=== PATIENT | female | born 1955 | race American Indian/Alaskan Native ===

== ENCOUNTER 2018-04-04 10:38 | Inpatient (IN) | payer MEDICARE ==
[2018-04-04] MEDS ORDERED: NACL 0.9% 1000 ML 1,000 ML IV ONE (11:56)
--- NOTE | 2018-04-04 12:36 | Emergency Department Report ---
ED General Adult HPI - General Chief complaint: Urogenital-Female Stated complaint: RECTAL BLEEDING Time Seen by Provider: 04/04/18 11:56 Source: EMS Mode of arrival: Stretcher Limitations: Language Barrier, Altered Mental Status, Physical Limitation - History of Present Illness Initial comments: Ms. Mcgee is a 62 yo female who presents blooding from the rectum. She is a patient of [facility]. Ms. 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 She is legally blind. She has history of dementia schizophrenia heart failure aphasia depression diabetes and epilepsy. Currently she denies any pain or discomfort. History obtained from [facility] documentation which accompaned the patient. Aspirin and Plavix are on her medication list. - Related Data Allergies Allergy/AdvReac Type Severity Reaction Status Date / Time No Known Allergies Allergy Unverified 07/03/16 16:32 ED Review of Systems ROS: Stated complaint: RECTAL BLEEDING Other details as noted in HPI Comment: Unobtainable due to pts medical conditions ED Past Medical Hx - Past Medical History Previous Medical History?: Yes Hx Hypertension: Yes Hx CVA: Yes (Left sided deficit) Hx Diabetes: Yes Hx Dementia: Yes Additional medical history: Generalized ms weakness. anxiety disorder. Legal blindness. Schizophrenia. Epilepsy - Social History Smoking Status: Unknown if ever smoked ED Physical Exam - General Limitations: Language Barrier, Altered Mental Status, Physical Limitation General appearance: alert, in no apparent distress - Head Head exam: Present: atraumatic, normocephalic - Eye Eye exam: Present: normal appearance - ENT ENT exam: Present: mucous membranes moist - Neck Neck exam: Present: normal inspection - Respiratory Respiratory exam: Present: normal lung sounds bilaterally. Absent: respiratory distress, wheezes, rales, rhonchi - Cardiovascular Cardiovascular Exam: Present: regular rate, normal rhythm, normal heart sounds. Absent: systolic murmur, diastolic murmur, rubs, gallop - GI/Abdominal GI/Abdominal exam: Present: soft, normal bowel sounds. Absent: distended, tenderness, guarding - Rectal Rectal exam: Present: heme (+) stool, bloody stool, other (brick red bloody output from rectum) - Extremities Exam Extremities exam: Present: normal inspection - Back Exam Back exam: Present: normal inspection - Neurological Exam Neurological exam: Present: alert, other (oriented to name) - Psychiatric Psychiatric exam: Present: flat affect, other (calm) - Skin Skin exam: Present: warm, dry, intact, normal color. Absent: rash ED Course Vital Signs 04/04/18 04/04/18 04/04/18 11:40 11:46 12:00 Temperature 98.8 F Pulse Rate 82 88 85 Respiratory 12 18 Rate Blood Pressure 104/72 104/72 104/72 O2 Sat by Pulse 96 97 98 Oximetry 04/04/18 04/04/18 04/04/18 12:16 12:45 13:00 Temperature Pulse Rate 82 84 85 Respiratory 12 17 17 Rate Blood Pressure 105/79 105/79 102/57 O2 Sat by Pulse 98 99 96 Oximetry 04/04/18 13:15 Temperature Pulse Rate 85 Respiratory 13 Rate Blood Pressure 82/52 O2 Sat by Pulse 97 Oximetry ED Medical Decision Making - Lab Data Result diagrams: 04/04/18 12:11 04/04/18 12:11 Laboratory Results - last 24 hr 04/04/18 04/04/18 04/04/18 12:11 12:11 12:11 WBC 7.2 RBC 3.49 L Hgb 11.0 Hct 32.6 MCV 94 MCH 31 MCHC 34 RDW 15.1 Plt Count 221 Lymph % (Auto) 37.9 H [place] % (Auto) 6.6 Eos % (Auto) 0.8 Baso % (Auto) 0.4 Lymph # 2.7 [place] # 0.5 Eos # 0.1 Baso # 0.0 Seg Neutrophils % 54.3 Seg Neutrophils # 3.9 PT 13.6 INR 0.99 APTT 35.1 Sodium 144 Potassium 4.2 Chloride 104.1 Carbon Dioxide 26 Anion Gap 18 BUN 25 H Creatinine 0.5 L Estimated GFR > 60 BUN/Creatinine Ratio 50 Glucose 133 H Calcium 8.6 Total Bilirubin 0.20 AST 11 ALT 11 Alkaline Phosphatase 43 Total Protein 6.3 Albumin 3.7 L Albumin/Globulin Ratio 1.4 Lipase 39 Blood Type Antibody Screen 04/04/18 12:15 WBC RBC Hgb Hct MCV MCH MCHC RDW Plt Count Lymph % (Auto) [place] % (Auto) Eos % (Auto) Baso % (Auto) Lymph # [place] # Eos # Baso # Seg Neutrophils % Seg Neutrophils # PT INR APTT Sodium Potassium Chloride Carbon Dioxide Anion Gap BUN Creatinine Estimated GFR BUN/Creatinine Ratio Glucose Calcium Total Bilirubin AST ALT Alkaline Phosphatase Total Protein Albumin Albumin/Globulin Ratio Lipase Blood Type A POSITIVE Antibody Screen Negative Vital Signs - 24 hr 04/04/18 04/04/18 04/04/18 11:40 11:46 12:00 Temperature 98.8 F Pulse Rate 82 88 85 Respiratory 12 18 Rate Blood Pressure 104/72 104/72 104/72 O2 Sat by Pulse 96 97 98 Oximetry 04/04/18 04/04/18 04/04/18 12:16 12:45 13:00 Temperature Pulse Rate 82 84 85 Respiratory 12 17 17 Rate Blood Pressure 105/79 105/79 102/57 O2 Sat by Pulse 98 99 96 Oximetry 04/04/18 13:15 Temperature Pulse Rate 85 Respiratory 13 Rate Blood Pressure 82/52 O2 Sat by Pulse 97 Oximetry - Medical Decision Making Ms. Mcgee is a 62-year-old female presents with lower GI bleed. Differential diagnosis includes diverticular bleed versus AVM versus mass. She is taking anticoagulation with Plavix and antiplatelet therapy with aspirin. She did have transient hypotension which improved with IV fluid therapy. Admitted to hospitalist service. I consulted GI service of [facility] and Dr. Gil. Critical Care Time: Yes Critical care time in (mins) excluding proc time.: 40 Critical care attestation.: If time is entered above; I have spent that time in minutes in the direct care of this critically ill patient, excluding procedure time. 40 minutes of critical care time excluding procedures were used in the care of the patient. I was concerned for active hemorrhage and cardiovascular instability. I reviewed [facility] documentation. Patient required multiple reassessments and interventions. I spoke with several consultants including warehouseman and hospitalist. ED Disposition Clinical Impression: Lower GI bleed Disposition: OP ADMIT IP TO THIS HOSP Is pt being admited?: Yes Does the pt Need Aspirin: No Condition: Stable Time of Disposition: 15:17
[2018-04-04 12:48] LABS: Basophils % (Auto) 0.4 % (0.0-1.8); Eosinophils # (Auto) 0.1 K/mm3 (0.0-0.4); Eosinophils % (Auto) 0.8 % (0.0-4.3); Hematocrit 32.6 % (30.3-42.9); Lymphocytes # (Auto) 2.7 K/mm3 (1.2-5.4); Lymphocytes % (Auto) 37.9 % (13.4-35.0); Mean Corpuscular HGB Conc 34 % (30-34); Mean Corpuscular Hemoglobin 31 pg (28-32); Mean Corpuscular Volume 94 fl (79-97); Monocytes # (Auto) 0.5 K/mm3 (0.0-0.8); Monocytes % (Auto) 6.6 % (0.0-7.3); Platelet Count 221 K/mm3 (140-440); Red Blood Count 3.49 M/mm3 (3.65-5.03); Red Cell Distribution Width 15.1 % (13.2-15.2)
[2018-04-04 13:08] LABS: Alanine Aminotransferase 11 units/L (7-56); Albumin 3.7 g/dL (3.9-5); BUN/Creatinine Ratio 50; Blood Urea Nitrogen 25 mg/dL (7-17); Calcium 8.6 mg/dL (8.4-10.2); Hemolysis Index 8; Lipase 39 units/L (13-60)
[2018-04-04 13:12] LABS: INR 0.99 (0.87-1.13)
[2018-04-04 13:13] LABS: Partial Thromboplastin Time 35.1 Sec. (24.2-36.6)
--- NOTE | 2018-04-04 15:52 | Gastroenterology Consultation ---
History of Present Illness - Reason for Consult Consult date: 04/04/18 LGIB Requesting physician: FLORENTINO VENEGAS - History of Present Illness Patient is a 62 y/o female alf resident with PMH of CVA, legally blind , dementia, schizophrenia, heart failure, depression, DM, and epilepsy who was brought to ED for rectal bleeding to which GI has been consulted. This afternoon patient was resting in bed w/o acute distress. History obtained via chart review and from patient's sister (Anita Reed [phone]). Upon rectal exam, dark red/maroon stool was found. No hematemesis. Denies CP, SOB, dizziness , wt loss, abd pain, N/V, diarrhea, or constipation. No previous hx of GI bleeding. No previous colonoscopy. No Fhx of colon cancer. On ASA and Plavix. Past History Past Medical History: diabetes, heart failure, seizures, stroke, other (legally blind, dementia, schizophrenia, depression ) Past Surgical History: Other (unknown) Social history: other (alf resident) Medications and Allergies Allergies Allergy/AdvReac Type Severity Reaction Status Date / Time No Known Allergies Allergy Unverified 07/03/16 16:32 Home Medications Medication Instructions Recorded Confirmed Last Taken Type Aspirin 325 mg PO DAILY 04/04/18 04/04/18 Unknown History Atorvastatin Calcium 40 mg PO DAILY 04/04/18 04/04/18 Unknown History Carvedilol [Coreg] 12.5 mg PO BID 04/04/18 04/04/18 Unknown History Clopidogrel [Plavix] 75 mg PO QDAY 04/04/18 04/04/18 Unknown History LORazepam [Ativan] 1 mg PO TID 04/04/18 04/04/18 Unknown History Lisinopril [Zestril] 20 mg PO QDAY 04/04/18 04/04/18 Unknown History Loratadine [Claritin] 10 mg PO DAILY 04/04/18 04/04/18 Unknown History Mometasone Furoate [Nasonex] 2 spray NS QDAY 04/04/18 04/04/18 Unknown History OLANZapine [Zyprexa Zydis] 15 mg PO DAILY 04/04/18 04/04/18 Unknown History Polyethylene Glycol 3350 [Miralax 17 gm PO QDAY 04/04/18 04/04/18 Unknown History 3350] Active Meds: Active Medications Sodium Chloride (Nacl 0.9% 1000 Ml) 1,000 mls @ 250 mls/hr IV ONCE ONE Stop: 04/04/18 15:55 Last Admin: 04/04/18 12:30 Dose: 250 mls/hr Review of Systems - Review of Systems All systems: negative Gastrointestinal: other (rectal bleeding) Exam - Constitutional Vital Signs: Temp Pulse Resp BP Pulse Ox 98.8 F 85 13 82/52 97 04/04/18 11:40 04/04/18 13:15 04/04/18 13:15 04/04/18 13:15 04/04/18 13:15 General appearance: no acute distress, other (language barrier) - Respiratory Respiratory: bilateral: CTA (anterior) - Cardiovascular Rhythm: regular Heart Sounds: Present: S1 & S2 - Gastrointestinal General gastrointestinal: Present: soft, non-tender, non-distended, normal bowel sounds Rectal Exam: other (dark red/maroon stool) - Labs CBC & Chem 7: 04/04/18 12:11 04/04/18 12:11 Lab Results: Laboratory Results - last 24 hr 04/04/18 04/04/18 04/04/18 12:11 12:11 12:11 WBC 7.2 RBC 3.49 L Hgb 11.0 Hct 32.6 MCV 94 MCH 31 MCHC 34 RDW 15.1 Plt Count 221 Lymph % (Auto) 37.9 H [place] % (Auto) 6.6 Eos % (Auto) 0.8 Baso % (Auto) 0.4 Lymph # 2.7 [place] # 0.5 Eos # 0.1 Baso # 0.0 Seg Neutrophils % 54.3 Seg Neutrophils # 3.9 PT 13.6 INR 0.99 APTT 35.1 Sodium 144 Potassium 4.2 Chloride 104.1 Carbon Dioxide 26 Anion Gap 18 BUN 25 H Creatinine 0.5 L Estimated GFR > 60 BUN/Creatinine Ratio 50 Glucose 133 H Calcium 8.6 Total Bilirubin 0.20 AST 11 ALT 11 Alkaline Phosphatase 43 Total Protein 6.3 Albumin 3.7 L Albumin/Globulin Ratio 1.4 Lipase 39 Blood Type Antibody Screen 04/04/18 12:15 WBC RBC Hgb Hct MCV MCH MCHC RDW Plt Count Lymph % (Auto) [place] % (Auto) Eos % (Auto) Baso % (Auto) Lymph # [place] # Eos # Baso # Seg Neutrophils % Seg Neutrophils # PT INR APTT Sodium Potassium Chloride Carbon Dioxide Anion Gap BUN Creatinine Estimated GFR BUN/Creatinine Ratio Glucose Calcium Total Bilirubin AST ALT Alkaline Phosphatase Total Protein Albumin Albumin/Globulin Ratio Lipase Blood Type A POSITIVE Antibody Screen Negative Assessment and Plan 1.GI bleed 2.rectal bleeding -H/H WNL (11.0/32.6) -continue to monitor H/H and transfuse as needed -hold blood thinning medications -currently HD stable -rectal exam revealed dark red/maroon stool -etiology unclear- possible diverticular vs other -will order stat bleeding scan for further evaluation -start on PPI -continue supportive care -further recommendations to follow
[2018-04-04] MEDS ORDERED: PROTONIX IV SCH (17:00)
[2018-04-04] MEDS ORDERED: PROTONIX IV ONE (18:03)
--- NOTE | 2018-04-04 21:48 | History and Physical Report ---
History of Present Illness Date of examination: 04/04/18 Date of admission: 04/04/18 15:15 Chief complaint: Blood per rectum History of present illness: History of Present Illness: 62 y/o female longterm resident with PMH of CVA, legally blind, dementia, schizophrenia, heart failure, depression, DM, and epilepsy was brought to ED for rectal bleeding .This afternoon patient was resting in bed w/o acute distress.Appaarently had a bloody stool.Poor History Past History Past Medical History: diabetes, heart failure, seizures, stroke, other (legally blind, dementia, schizophrenia, depression ) Past Surgical History: Other (unknown) Social history: other (longterm resident) Review of Systems - Review of Systems All systems: negative Gastrointestinal: other (rectal bleeding) Past History Past Medical History: diabetes, heart failure, seizures, stroke, other (legally blind, dementia, schizophrenia, depression ) Past Surgical History: Other (unknown) Social history: other (longterm resident) Medications and Allergies Allergies Allergy/AdvReac Type Severity Reaction Status Date / Time No Known Allergies Allergy Unverified 07/03/16 16:32 Home Medications Medication Instructions Recorded Confirmed Last Taken Type Aspirin 325 mg PO DAILY 04/04/18 04/04/18 Unknown History Atorvastatin Calcium 40 mg PO DAILY 04/04/18 04/04/18 Unknown History Carvedilol [Coreg] 12.5 mg PO BID 04/04/18 04/04/18 Unknown History Clopidogrel [Plavix] 75 mg PO QDAY 04/04/18 04/04/18 Unknown History LORazepam [Ativan] 1 mg PO TID 04/04/18 04/04/18 Unknown History Lisinopril [Zestril] 20 mg PO QDAY 04/04/18 04/04/18 Unknown History Loratadine [Claritin] 10 mg PO DAILY 04/04/18 04/04/18 Unknown History Mometasone Furoate [Nasonex] 2 spray NS QDAY 04/04/18 04/04/18 Unknown History OLANZapine [Zyprexa Zydis] 15 mg PO DAILY 04/04/18 04/04/18 Unknown History Polyethylene Glycol 3350 [Miralax 17 gm PO QDAY 04/04/18 04/04/18 Unknown History 3350] Active Meds: Active Medications Pantoprazole Sodium (Protonix) 40 mg IV DAILY ANALIA Last Admin: 04/04/18 18:05 Dose: 40 mg Exam - Constitutional Vitals: Temp Pulse Resp BP Pulse Ox 99 F 82 17 110/65 99 04/04/18 17:55 04/04/18 17:45 04/04/18 17:45 04/04/18 17:45 04/04/18 17:45 General appearance: Present: no acute distress, well-nourished - EENT Eyes: Present: PERRL ENT: hearing intact, clear oral mucosa - Neck Neck: Present: supple, normal ROM - Respiratory Respiratory effort: normal Respiratory: bilateral: CTA - Cardiovascular Heart rate: 80 Rhythm: regular Heart Sounds: Present: S1 & S2. Absent: rub, click - Extremities Extremities: no ischemia, pulses intact, pulses symmetrical, No edema Peripheral Pulses: within normal limits - Abdominal General gastrointestinal: Present: soft, non-tender, non-distended, normal bowel sounds Female genitourinary: Present: normal - Integumentary Integumentary: Present: clear, warm, dry - Musculoskeletal Musculoskeletal: left sided weakness, generalized weakness - Psychiatric Psychiatric: appropriate mood/affect, intact judgment & insight - Neurologic Neurologic: CNII-XII intact, moves all extremities - Allied Health Allied health notes reviewed: nursing, case management Results - Labs CBC & Chem 7: 04/05/18 05:49 04/05/18 05:49 Labs: Laboratory Last Values WBC 7.2 K/mm3 (4.5-11.0) 04/04/18 12:11 RBC 3.49 M/mm3 (3.65-5.03) L 04/04/18 12:11 Hgb 11.0 gm/dl (10.1-14.3) 04/04/18 12:11 Hct 32.6 % (30.3-42.9) 04/04/18 12:11 MCV 94 fl (79-97) 04/04/18 12:11 MCH 31 pg (28-32) 04/04/18 12:11 MCHC 34 % (30-34) 04/04/18 12:11 RDW 15.1 % (13.2-15.2) 04/04/18 12:11 Plt Count 221 K/mm3 (140-440) 04/04/18 12:11 Lymph % (Auto) 37.9 % (13.4-35.0) H 04/04/18 12:11 [place] % (Auto) 6.6 % (0.0-7.3) 04/04/18 12:11 Eos % (Auto) 0.8 % (0.0-4.3) 04/04/18 12:11 Baso % (Auto) 0.4 % (0.0-1.8) 04/04/18 12:11 Lymph # 2.7 K/mm3 (1.2-5.4) 04/04/18 12:11 [place] # 0.5 K/mm3 (0.0-0.8) 04/04/18 12:11 Eos # 0.1 K/mm3 (0.0-0.4) 04/04/18 12:11 Baso # 0.0 K/mm3 (0.0-0.1) 04/04/18 12:11 Seg Neutrophils % 54.3 % (40.0-70.0) 04/04/18 12:11 Seg Neutrophils # 3.9 K/mm3 (1.8-7.7) 04/04/18 12:11 PT 13.6 Sec. (12.2-14.9) 04/04/18 12:11 INR 0.99 (0.87-1.13) 04/04/18 12:11 APTT 35.1 Sec. (24.2-36.6) 04/04/18 12:11 Sodium 144 mmol/L (137-145) 04/04/18 12:11 Potassium 4.2 mmol/L (3.6-5.0) 04/04/18 12:11 Chloride 104.1 mmol/L (98-107) 04/04/18 12:11 Carbon Dioxide 26 mmol/L (22-30) 04/04/18 12:11 Anion Gap 18 mmol/L 04/04/18 12:11 BUN 25 mg/dL (7-17) H 04/04/18 12:11 Creatinine 0.5 mg/dL (0.7-1.2) L 04/04/18 12:11 Estimated GFR > 60 ml/min 04/04/18 12:11 BUN/Creatinine Ratio 50 % 04/04/18 12:11 Glucose 133 mg/dL (65-100) H 04/04/18 12:11 Calcium 8.6 mg/dL (8.4-10.2) 04/04/18 12:11 Total Bilirubin 0.20 mg/dL (0.1-1.2) 04/04/18 12:11 AST 11 units/L (5-40) 04/04/18 12:11 ALT 11 units/L (7-56) 04/04/18 12:11 Alkaline Phosphatase 43 units/L (35-129) 04/04/18 12:11 Total Protein 6.3 g/dL (6.3-8.2) 04/04/18 12:11 Albumin 3.7 g/dL (3.9-5) L 04/04/18 12:11 Albumin/Globulin Ratio 1.4 % 04/04/18 12:11 Lipase 39 units/L (13-60) 04/04/18 12:11 Blood Type A POSITIVE 04/04/18 12:15 Antibody Screen Negative 04/04/18 12:15 Short CBC 04/04/18 04/04/18 04/05/18 Range/Units 12:11 22:41 05:49 WBC 7.2 5.1 (4.5-11.0) K/mm3 Hgb 11.0 8.8 L 8.7 L (10.1-14.3) gm/dl Hct 32.6 25.7 L D 25.3 L (30.3-42.9) % Plt Count 221 170 (140-440) K/mm3 BMP 04/04/18 04/05/18 12:11 05:49 Sodium 144 147 H Potassium 4.2 3.9 Chloride 104.1 109.8 H Carbon Dioxide 26 26 BUN 25 H 24 H Creatinine 0.5 L 0.5 L Glucose 133 H 103 H Calcium 8.6 8.2 L Liver Function 04/04/18 04/05/18 Range/Units 12:11 05:49 Total Bilirubin 0.20 0.20 (0.1-1.2) mg/dL AST 11 11 (5-40) units/L ALT 11 9 (7-56) units/L Alkaline Phosphatase 43 38 (35-129) units/L Albumin 3.7 L 3.2 L (3.9-5) g/dL - Imaging and Cardiology EKG: report reviewed Assessment and Plan Advance Directives: Yes (Full code) VTE prophylaxis?: Chemical, Mechanical Plan of care discussed with patient/family: Yes - Patient Problems (1) Lower GI bleed Current Visit: Yes Status: Acute Plan to address problem: Bleeding scan per GI GI consulted (2) HTN (hypertension) Current Visit: Yes Status: Chronic Qualifiers: Hypertension type: essential hypertension Qualified Code(s): I10 - Essential (primary) hypertension Plan to address problem: On catapress patch (3) HLD (hyperlipidemia) Current Visit: Yes Status: Chronic Qualifiers: Hyperlipidemia type: mixed hyperlipidemia Qualified Code(s): E78.2 - Mixed hyperlipidemia Plan to address problem: Will hold the statins (4) CVA, old, dysarthria Current Visit: Yes Status: Chronic Plan to address problem: With L side weakness WILL Hold Plavix (5) DVT prophylaxis Current Visit: Yes Status: Acute Plan to address problem: on SCD's
[2018-04-04] MEDS ORDERED: MORPHINE IV PRN (21:51)
[2018-04-04] MEDS ORDERED: TYLENOL PO PRN (21:51)
[2018-04-04] MEDS ORDERED: ZOFRAN IV PRN (21:51)
[2018-04-04] MEDS ORDERED: PHENERGAN PR PRN (21:51)
[2018-04-04] MEDS ORDERED: SODIUM CHLORIDE FLUSH SYRINGE 10 ML IV PRN (21:51)
[2018-04-04] MEDS ORDERED: D5NS 1,000 ML IV SCH (22:00)
[2018-04-04 23:09] LABS: Hematocrit 25.7 % (30.3-42.9); Hemoglobin 8.8 gm/dl (10.1-14.3)
[2018-04-05] MEDS: PROTONIX IV SCH ×3 (00:54→23:15)
[2018-04-05] MEDS: SODIUM CHLORIDE FLUSH SYRINGE 10 ML IV SCH ×3 (00:55→23:16)
[2018-04-05 06:47] LABS: Alanine Aminotransferase 9 units/L (7-56); Albumin 3.2 g/dL (3.9-5); BUN/Creatinine Ratio 48; Blood Urea Nitrogen 24 mg/dL (7-17); Calcium 8.2 mg/dL (8.4-10.2); Hemolysis Index 26
[2018-04-05 06:50] LABS: Basophils % (Auto) 0.2 % (0.0-1.8); Eosinophils % (Auto) 0.9 % (0.0-4.3); Hematocrit 25.3 % (30.3-42.9); Hemoglobin 8.7 gm/dl (10.1-14.3); Lymphocytes # (Auto) 2.8 K/mm3 (1.2-5.4); Mean Corpuscular HGB Conc 34 % (30-34); Mean Corpuscular Hemoglobin 32 pg (28-32); Mean Corpuscular Volume 93 fl (79-97); Monocytes # (Auto) 0.5 K/mm3 (0.0-0.8); Monocytes % (Auto) 8.8 % (0.0-7.3); Platelet Count 170 K/mm3 (140-440); Red Blood Count 2.72 M/mm3 (3.65-5.03); Red Cell Distribution Width 14.9 % (13.2-15.2)
[2018-04-05] MEDS ORDERED: FLUSH HEPARIN IV ONE ×2 (10:38→20:57)
--- NOTE | 2018-04-05 12:37 | Gastroenterology Progress Note ---
Addendum entered and electronically signed by ADRIENNE BRICEÑO NP 04/05/18 16: 23: bleeding scan negative. will schedule for colonoscopy in am. Original Note: Assessment and Plan 1.GI bleed 2.rectal bleeding -HGB 8.7- trended down from admission but stable -continue to monitor H/H and transfuse as needed -hold blood thinning medications - HD stable -BM x 1 this am with dark red/maroon stool per nursing -etiology unclear- possible diverticular vs other -bleeding scan pending for today -consider colonoscopy tomorrow based on results -continue PPI and supportive care -will follow Subjective Date of service: 04/05/18 Principal diagnosis: LGIB Interval history: Patient w/o acute distress. BM x 1 this am with dark red/maroon stool per nursing. Denies abd pain or N/V. Objective - Constitutional Vitals: Temp Pulse Resp BP Pulse Ox 97.6 F 74 18 110/73 100 04/05/18 08:00 04/05/18 08:00 04/05/18 08:00 04/05/18 08:00 04/05/18 08:00 General appearance: no acute distress - Respiratory Respiratory: bilateral: CTA - Cardiovascular Rhythm: regular Heart Sounds: Present: S1 & S2 - Gastrointestinal General gastrointestinal: Present: soft, non-tender, non-distended, normal bowel sounds - Labs CBC & Chem 7: 04/05/18 05:49 04/05/18 05:49 Labs: Laboratory Results - last 24 hr 04/04/18 04/04/18 04/04/18 12:11 12:11 12:11 WBC 7.2 RBC 3.49 L Hgb 11.0 Hct 32.6 MCV 94 MCH 31 MCHC 34 RDW 15.1 Plt Count 221 Lymph % (Auto) 37.9 H [place] % (Auto) 6.6 Eos % (Auto) 0.8 Baso % (Auto) 0.4 Lymph # 2.7 [place] # 0.5 Eos # 0.1 Baso # 0.0 Seg Neutrophils % 54.3 Seg Neutrophils # 3.9 PT 13.6 INR 0.99 APTT 35.1 Sodium 144 Potassium 4.2 Chloride 104.1 Carbon Dioxide 26 Anion Gap 18 BUN 25 H Creatinine 0.5 L Estimated GFR > 60 BUN/Creatinine Ratio 50 Glucose 133 H Hemoglobin A1c Calcium 8.6 Total Bilirubin 0.20 AST 11 ALT 11 Alkaline Phosphatase 43 Total Protein 6.3 Albumin 3.7 L Albumin/Globulin Ratio 1.4 Lipase 39 Blood Type Antibody Screen 04/04/18 04/04/18 04/04/18 12:15 22:41 22:41 WBC RBC Hgb 8.8 L Hct 25.7 L D MCV MCH MCHC RDW Plt Count Lymph % (Auto) [place] % (Auto) Eos % (Auto) Baso % (Auto) Lymph # [place] # Eos # Baso # Seg Neutrophils % Seg Neutrophils # PT INR APTT Sodium Potassium Chloride Carbon Dioxide Anion Gap BUN Creatinine Estimated GFR BUN/Creatinine Ratio Glucose Hemoglobin A1c 5.6 Calcium Total Bilirubin AST ALT Alkaline Phosphatase Total Protein Albumin Albumin/Globulin Ratio Lipase Blood Type A POSITIVE Antibody Screen Negative 04/05/18 04/05/18 05:49 05:49 WBC 5.1 RBC 2.72 L Hgb 8.7 L Hct 25.3 L MCV 93 MCH 32 MCHC 34 RDW 14.9 Plt Count 170 Lymph % (Auto) 55.0 H [place] % (Auto) 8.8 H Eos % (Auto) 0.9 Baso % (Auto) 0.2 Lymph # 2.8 [place] # 0.5 Eos # 0.0 Baso # 0.0 Seg Neutrophils % 35.1 L Seg Neutrophils # 1.8 PT INR APTT Sodium 147 H Potassium 3.9 Chloride 109.8 H Carbon Dioxide 26 Anion Gap 15 BUN 24 H Creatinine 0.5 L Estimated GFR > 60 BUN/Creatinine Ratio 48 Glucose 103 H Hemoglobin A1c Calcium 8.2 L Total Bilirubin 0.20 AST 11 ALT 9 Alkaline Phosphatase 38 Total Protein 5.3 L Albumin 3.2 L Albumin/Globulin Ratio 1.5 Lipase Blood Type Antibody Screen
--- NOTE | 2018-04-05 13:36 | Nuclear Medicine Report ---
BLEEDING SCAN: History: GI bleeding, rectal bleeding. Standard distribution of radiotracer is noted. No enteric activity to suggest gastrointestinal bleeding is noted. IMPRESSION: Normal bleeding scan. No evidence for active bleeding at the time of study.
--- NOTE | 2018-04-05 16:26 | Progress Note ---
Assessment and Plan Assessment and plan: Bloody stool. H/H stable GI consulted Colonoscopy tomorrow Diabetes mellitus type 2. Check fingerstick Qac and hs Chronic heart failure. Seizure disorder. Stable Dementia Schizophrenia Legally blind Full code status History Interval history: Bloody stool, patient confused, cannot obtain much history from him Hospitalist Physical - Physical exam Narrative exam: GEN:Not in acute distress, HEENT: Normocephalic, atraumatic, Neck: supple, No JVD Lungs:Clear to auscultation bilaterally, no crackles, no wheeze Heart:S1 and S2 reg, no murmurs, rubs or gallop Abd:soft, non-tender, non-distended, Normal bowel sounds Ext: No edema, clubbing or cyanosis Neuro:Awake - Constitutional Vitals: Temp Pulse Resp BP Pulse Ox 97.6 F 74 18 110/73 100 04/05/18 08:00 04/05/18 08:00 04/05/18 08:00 04/05/18 08:00 04/05/18 08:00 General appearance: Present: no acute distress, well-nourished Results - Labs CBC & Chem 7: 04/06/18 11:14 04/06/18 11:14 Labs: Laboratory Last Values WBC 5.1 K/mm3 (4.5-11.0) 04/05/18 05:49 RBC 2.72 M/mm3 (3.65-5.03) L 04/05/18 05:49 Hgb 8.7 gm/dl (10.1-14.3) L 04/05/18 05:49 Hct 25.3 % (30.3-42.9) L 04/05/18 05:49 MCV 93 fl (79-97) 04/05/18 05:49 MCH 32 pg (28-32) 04/05/18 05:49 MCHC 34 % (30-34) 04/05/18 05:49 RDW 14.9 % (13.2-15.2) 04/05/18 05:49 Plt Count 170 K/mm3 (140-440) 04/05/18 05:49 Lymph % (Auto) 55.0 % (13.4-35.0) H 04/05/18 05:49 [place] % (Auto) 8.8 % (0.0-7.3) H 04/05/18 05:49 Eos % (Auto) 0.9 % (0.0-4.3) 04/05/18 05:49 Baso % (Auto) 0.2 % (0.0-1.8) 04/05/18 05:49 Lymph # 2.8 K/mm3 (1.2-5.4) 04/05/18 05:49 [place] # 0.5 K/mm3 (0.0-0.8) 04/05/18 05:49 Eos # 0.0 K/mm3 (0.0-0.4) 04/05/18 05:49 Baso # 0.0 K/mm3 (0.0-0.1) 04/05/18 05:49 Seg Neutrophils % 35.1 % (40.0-70.0) L 04/05/18 05:49 Seg Neutrophils # 1.8 K/mm3 (1.8-7.7) 04/05/18 05:49 PT 13.6 Sec. (12.2-14.9) 04/04/18 12:11 INR 0.99 (0.87-1.13) 04/04/18 12:11 APTT 35.1 Sec. (24.2-36.6) 04/04/18 12:11 Sodium 147 mmol/L (137-145) H 04/05/18 05:49 Potassium 3.9 mmol/L (3.6-5.0) 04/05/18 05:49 Chloride 109.8 mmol/L (98-107) H 04/05/18 05:49 Carbon Dioxide 26 mmol/L (22-30) 04/05/18 05:49 Anion Gap 15 mmol/L 04/05/18 05:49 BUN 24 mg/dL (7-17) H 04/05/18 05:49 Creatinine 0.5 mg/dL (0.7-1.2) L 04/05/18 05:49 Estimated GFR > 60 ml/min 04/05/18 05:49 BUN/Creatinine Ratio 48 % 04/05/18 05:49 Glucose 103 mg/dL (65-100) H 04/05/18 05:49 Hemoglobin A1c 5.6 % (4-6) 04/04/18 22:41 Calcium 8.2 mg/dL (8.4-10.2) L 04/05/18 05:49 Total Bilirubin 0.20 mg/dL (0.1-1.2) 04/05/18 05:49 AST 11 units/L (5-40) 04/05/18 05:49 ALT 9 units/L (7-56) 04/05/18 05:49 Alkaline Phosphatase 38 units/L (35-129) 04/05/18 05:49 Total Protein 5.3 g/dL (6.3-8.2) L 04/05/18 05:49 Albumin 3.2 g/dL (3.9-5) L 04/05/18 05:49 Albumin/Globulin Ratio 1.5 % 04/05/18 05:49 Lipase 39 units/L (13-60) 04/04/18 12:11 Blood Type A POSITIVE 04/04/18 12:15 Antibody Screen Negative 04/04/18 12:15
[2018-04-05] MEDS ORDERED: GOLYTELY PO ONE ×2 (18:00→20:00)
[2018-04-05] MEDS ORDERED: D5/0.45NS 1,000 ML IV SCH (23:45)
[2018-04-06] MEDS ORDERED: FLEET PR STA ×2 (09:04→09:07)
[2018-04-06 11:31] LABS: Mean Corpuscular HGB Conc 33 % (30-34); Mean Corpuscular Hemoglobin 32 pg (28-32); Mean Corpuscular Volume 94 fl (79-97); Platelet Count 191 K/mm3 (140-440); Red Blood Count 2.55 M/mm3 (3.65-5.03); Red Cell Distribution Width 14.7 % (13.2-15.2)
[2018-04-06] MEDS ORDERED: NACL 0.9% 1000 ML 1,000 ML IV SCH (12:00)
[2018-04-06] MEDS: PROTONIX IV SCH ×2 (12:16→22:20)
[2018-04-06 14:24] LABS: BUN/Creatinine Ratio 34; Blood Urea Nitrogen 17 mg/dL (7-17); Calcium 8.6 mg/dL (8.4-10.2); Hemolysis Index 168
[2018-04-06] MEDS ORDERED: WATER FOR IRRIG STERILE IR ONE (15:04)
[2018-04-06] MEDS ORDERED: DIPRIVAN 10 MG/ML IV ONE (15:40)
--- NOTE | 2018-04-06 15:46 | Anesthesia Day of Surgery ---
Anesthesia Day of Surgery - Day of Surgery Patient Examined: Yes Patient H&P Reviewed: Yes Patient is NPO: Yes
--- NOTE | 2018-04-06 15:46 | Anesthesia Consultation ---
Anesthesia Consult and Med Hx Date of service: 04/06/18 - Airway Anesthetic Teeth Evaluation: Poor ROM Head & Neck: Adequate Mental/Hyoid Distance: Adequate Mallampati Class: Class III Intubation Access Assessment: Probably Good - Pre-Operative Health Status ASA Pre-Surgery Classification: ASA3 Proposed Anesthetic Plan: MAC - Pulmonary Hx Smoking: Yes COPD: Yes - Cardiovascular System Hx Hypertension: Yes Hx Coronary Artery Disease: Yes (CHF) - Central Nervous System Hx Seizures: Yes CVA: Yes Hx Psychiatric Problems: Yes (Dementia, Schizophrenia, Depression) - Hematic Hx Anemia: Yes - Other Systems Hx Cancer: No
[2018-04-06] MEDS ORDERED: WATER FOR IRRIG STERILE ONE (16:00)
--- NOTE | 2018-04-06 16:10 | Post Operative Note ---
Pre-op diagnosis: GI bleed Post-op diagnosis: same Findings: Colonoscopy: diverticulosis sigmoid - internal hemorrhoids - negative other Procedure: colonoscopy Anesthesia: MAC Surgeon: ZION GOODEN Estimated blood loss: none Pathology: list Specimen disposition: to lab Condition: stable Disposition: floor
--- NOTE | 2018-04-06 16:26 | Progress Note ---
Assessment and Plan Assessment and plan: Bloody stool. H/H stable GI following For Colonoscopy today Diabetes mellitus type 2. Check fingerstick Qac and hs Encephalopathy. Neurochecks Hypernatremia. Start 5%Dextrose Chronic heart failure. Seizure disorder. Stable Dementia Schizophrenia Legally blind Full code status History Interval history: Bloody stool, patient confused, cannot obtain much history from her Hospitalist Physical - Physical exam Narrative exam: GEN:Not in acute distress, HEENT: Normocephalic, atraumatic, Neck: supple, No JVD Lungs:Clear to auscultation bilaterally, no crackles, no wheeze Heart:S1 and S2 reg, no murmurs, rubs or gallop Abd:soft, non-tender, non-distended, Normal bowel sounds Ext: No edema, clubbing or cyanosis Neuro:Awake, confused - Constitutional Vitals: Temp Pulse Resp BP Pulse Ox 98.6 F 75 13 138/80 98 04/06/18 15:14 04/06/18 15:14 04/06/18 15:14 04/06/18 15:14 04/06/18 15:14 General appearance: Present: well-nourished Results - Labs CBC & Chem 7: 04/06/18 11:14 04/06/18 11:14 Labs: Laboratory Last Values WBC 4.1 K/mm3 (4.5-11.0) L 04/06/18 11:14 RBC 2.55 M/mm3 (3.65-5.03) L 04/06/18 11:14 Hgb 8.0 gm/dl (10.1-14.3) L 04/06/18 11:14 Hct 24.0 % (30.3-42.9) L 04/06/18 11:14 MCV 94 fl (79-97) 04/06/18 11:14 MCH 32 pg (28-32) 04/06/18 11:14 MCHC 33 % (30-34) 04/06/18 11:14 RDW 14.7 % (13.2-15.2) 04/06/18 11:14 Plt Count 191 K/mm3 (140-440) 04/06/18 11:14 Lymph % (Auto) 55.0 % (13.4-35.0) H 04/05/18 05:49 [place] % (Auto) 8.8 % (0.0-7.3) H 04/05/18 05:49 Eos % (Auto) 0.9 % (0.0-4.3) 04/05/18 05:49 Baso % (Auto) 0.2 % (0.0-1.8) 04/05/18 05:49 Lymph # 2.8 K/mm3 (1.2-5.4) 04/05/18 05:49 [place] # 0.5 K/mm3 (0.0-0.8) 04/05/18 05:49 Eos # 0.0 K/mm3 (0.0-0.4) 04/05/18 05:49 Baso # 0.0 K/mm3 (0.0-0.1) 04/05/18 05:49 Seg Neutrophils % 35.1 % (40.0-70.0) L 04/05/18 05:49 Seg Neutrophils # 1.8 K/mm3 (1.8-7.7) 04/05/18 05:49 PT 13.6 Sec. (12.2-14.9) 04/04/18 12:11 INR 0.99 (0.87-1.13) 04/04/18 12:11 APTT 35.1 Sec. (24.2-36.6) 04/04/18 12:11 Sodium 150 mmol/L (137-145) H 04/06/18 11:14 Potassium 3.9 mmol/L (3.6-5.0) 04/05/18 05:49 Chloride 111.7 mmol/L (98-107) H 04/06/18 11:14 Carbon Dioxide 24 mmol/L (22-30) 04/06/18 11:14 Anion Gap 15 mmol/L 04/05/18 05:49 BUN 17 mg/dL (7-17) 04/06/18 11:14 Creatinine 0.5 mg/dL (0.7-1.2) L 04/06/18 11:14 Estimated GFR > 60 ml/min 04/06/18 11:14 BUN/Creatinine Ratio 34 % 04/06/18 11:14 Glucose 103 mg/dL (65-100) H 04/06/18 11:14 POC Glucose 97 (70-105) 04/06/18 12:39 Hemoglobin A1c 5.6 % (4-6) 04/04/18 22:41 Calcium 8.6 mg/dL (8.4-10.2) 04/06/18 11:14 Total Bilirubin 0.20 mg/dL (0.1-1.2) 04/05/18 05:49 AST 11 units/L (5-40) 04/05/18 05:49 ALT 9 units/L (7-56) 04/05/18 05:49 Alkaline Phosphatase 38 units/L (35-129) 04/05/18 05:49 Total Protein 5.3 g/dL (6.3-8.2) L 04/05/18 05:49 Albumin 3.2 g/dL (3.9-5) L 04/05/18 05:49 Albumin/Globulin Ratio 1.5 % 04/05/18 05:49 Lipase 39 units/L (13-60) 04/04/18 12:11 Blood Type A POSITIVE 04/04/18 12:15 Antibody Screen Negative 04/04/18 12:15
--- NOTE | 2018-04-06 20:05 | Operative Report ---
PROCEDURE: Colonoscopy. INDICATION: 1. Rectal bleeding. 2. Anemia. MEDICATIONS: Propofol per DENTAL INSTRUMENT MAKER. COMPLICATIONS: None. DESCRIPTION OF PROCEDURE: The patient brought to procedure suite. The patient had the procedure discussed with her at length. All risks, complications, and benefits discussed, which the patient signed for the procedure to be performed. The patient was placed in left lateral decubitus position. Rectal exam performed prior to insertion of the scope. After adequate sedation medication as above, scope inserted into the rectum, brought to the level of the cecum. Appendiceal orifice, cecal strap were visualized. Colonoscope was then removed and mucosa visualized. Prep quality was poor. The patient's vital signs remained stable throughout the procedure. FINDINGS: This is a poor prep procedure, so I cannot rule out small lesions. No obvious mass lesions or polyps noted during this procedure. Multiple medium sigmoid diverticula noted. This may be the source of bleeding. Retroflexion showed small to medium internal hemorrhoids in the rectum. The patient tolerated the procedure well. No complications during the procedure. IMPRESSION: 1. Poor prep and so I cannot small lesions. 2. Diverticulosis, sigmoid. 3. Internal hemorrhoids. RECOMMENDATIONS: 1. Follow hematocrit and transfuse as needed. 2. Advance diet as tolerated. 3. Okay to discharge from GI standpoint. JOB# [id number] CAB/NTS
--- NOTE | 2018-04-06 21:08 | XRay Report ---
FINAL REPORT PROCEDURE: XR CHEST 1V AP TECHNIQUE: Chest radiograph anteroposterior view. CPT 69654 HISTORY: CHF COMPARISON: No prior studies are available for comparison. FINDINGS: Heart: Normal. Mediastinum/Vessels: Normal. Lungs/Pleural space: Normal. Bony thorax: No acute osseous abnormality. Life support devices: None. IMPRESSION: No acute cardiopulmonary abnormality.
[2018-04-06] MEDS: SODIUM CHLORIDE FLUSH SYRINGE 10 ML IV SCH ×2 (22:20)
[2018-04-06] MEDS: D5W 1,000 ML IV SCH (22:25)
[2018-04-07] MEDS: SODIUM CHLORIDE FLUSH SYRINGE 10 ML IV SCH ×2 (11:10→21:27)
[2018-04-07] MEDS: PROTONIX IV SCH (11:10)
[2018-04-07] MEDS: D5W 1,000 ML IV SCH ×2 (11:24→21:26)
--- NOTE | 2018-04-07 12:36 | Progress Note ---
Hospitalist Physical - Constitutional Vitals: Temp Pulse Resp BP Pulse Ox 98.7 F 81 18 137/80 100 04/07/18 11:58 04/07/18 11:58 04/07/18 11:58 04/07/18 11:58 04/07/18 11:58 General appearance: Present: well-nourished Results - Labs CBC & Chem 7: 04/06/18 11:14 04/06/18 11:14 Labs: Laboratory Last Values WBC 4.1 K/mm3 (4.5-11.0) L 04/06/18 11:14 RBC 2.55 M/mm3 (3.65-5.03) L 04/06/18 11:14 Hgb 8.0 gm/dl (10.1-14.3) L 04/06/18 11:14 Hct 24.0 % (30.3-42.9) L 04/06/18 11:14 MCV 94 fl (79-97) 04/06/18 11:14 MCH 32 pg (28-32) 04/06/18 11:14 MCHC 33 % (30-34) 04/06/18 11:14 RDW 14.7 % (13.2-15.2) 04/06/18 11:14 Plt Count 191 K/mm3 (140-440) 04/06/18 11:14 Lymph % (Auto) 55.0 % (13.4-35.0) H 04/05/18 05:49 [place] % (Auto) 8.8 % (0.0-7.3) H 04/05/18 05:49 Eos % (Auto) 0.9 % (0.0-4.3) 04/05/18 05:49 Baso % (Auto) 0.2 % (0.0-1.8) 04/05/18 05:49 Lymph # 2.8 K/mm3 (1.2-5.4) 04/05/18 05:49 [place] # 0.5 K/mm3 (0.0-0.8) 04/05/18 05:49 Eos # 0.0 K/mm3 (0.0-0.4) 04/05/18 05:49 Baso # 0.0 K/mm3 (0.0-0.1) 04/05/18 05:49 Seg Neutrophils % 35.1 % (40.0-70.0) L 04/05/18 05:49 Seg Neutrophils # 1.8 K/mm3 (1.8-7.7) 04/05/18 05:49 PT 13.6 Sec. (12.2-14.9) 04/04/18 12:11 INR 0.99 (0.87-1.13) 04/04/18 12:11 APTT 35.1 Sec. (24.2-36.6) 04/04/18 12:11 Sodium 150 mmol/L (137-145) H 04/06/18 11:14 Potassium 4.4 mmol/L (3.6-5.0) 04/06/18 11:14 Chloride 111.7 mmol/L (98-107) H 04/06/18 11:14 Carbon Dioxide 24 mmol/L (22-30) 04/06/18 11:14 Anion Gap 19 mmol/L 04/06/18 11:14 BUN 17 mg/dL (7-17) 04/06/18 11:14 Creatinine 0.5 mg/dL (0.7-1.2) L 04/06/18 11:14 Estimated GFR > 60 ml/min 04/06/18 11:14 BUN/Creatinine Ratio 34 % 04/06/18 11:14 Glucose 103 mg/dL (65-100) H 04/06/18 11:14 POC Glucose 140 (70-105) H 04/07/18 06:36 Hemoglobin A1c 5.6 % (4-6) 04/04/18 22:41 Calcium 8.6 mg/dL (8.4-10.2) 04/06/18 11:14 Total Bilirubin 0.20 mg/dL (0.1-1.2) 04/05/18 05:49 AST 11 units/L (5-40) 04/05/18 05:49 ALT 9 units/L (7-56) 04/05/18 05:49 Alkaline Phosphatase 38 units/L (35-129) 04/05/18 05:49 Total Protein 5.3 g/dL (6.3-8.2) L 04/05/18 05:49 Albumin 3.2 g/dL (3.9-5) L 04/05/18 05:49 Albumin/Globulin Ratio 1.5 % 04/05/18 05:49 Lipase 39 units/L (13-60) 04/04/18 12:11 Blood Type A POSITIVE 04/04/18 12:15 Antibody Screen Negative 04/04/18 12:15
[2018-04-07 16:03] LABS: Hematocrit 24.6 % (30.3-42.9); Hemoglobin 8.4 gm/dl (10.1-14.3)
[2018-04-07 16:26] LABS: BUN/Creatinine Ratio 10; Blood Urea Nitrogen 5 mg/dL (7-17); Calcium 8.9 mg/dL (8.4-10.2); Hemolysis Index 2
--- NOTE | 2018-04-07 16:42 | Discharge Summary ---
Providers - Providers Date of Admission: 04/04/18 15:15 Date of discharge: 04/07/18 Attending physician: CIERRA MOROCHO 04/04/18 Consult to Case Management [CONS] Routine Services Needed at Discharge: Hospitalist Nocturnist Physician Notified:: senior case manager 04/04/18 15:00 Consult to Physician [CONS] Stat Comment: Consulting Provider: ZION GOODEN Physician Instructions: Reason For Exam: lower GI bleed Primary care physician: CONSUMER ATTORNEY Hospitalization Condition: Fair Disposition: [place]-03 SNF W [facility] CERT Core Measure Documentation - Palliative Care Palliative Care/ Comfort Measures: Not Applicable - Core Measures Any of the following diagnoses?: none Exam - Constitutional Vitals: Temp Pulse Resp BP Pulse Ox 98.7 F 81 18 137/80 100 04/07/18 11:58 04/07/18 11:58 04/07/18 11:58 04/07/18 11:58 04/07/18 11:58 Plan Activity: advance as tolerated Diet: low fat, low cholesterol, low salt Additional Instructions: 1.Follow up with Physician at SNF in 2-3 days. 2.Follow up with LETY Rey in 1 week Follow up with: PRIMARY CAREMD [Primary Care Provider] - 7 Days Forms: Accompanied Note
[2018-04-07] MEDS: PROTONIX PO SCH (21:26)
[2018-04-08] MEDS: KCL 10MEQ/100ML 10 MEQ/100 ML BAG IV SCH ×2 (02:27→03:41)
--- NOTE | 2018-04-08 10:16 | Event Note ---
Date: 04/08/18
[2018-04-08 12:15] VITALS: BP 127/75
[2018-04-08] MEDS: SODIUM CHLORIDE FLUSH SYRINGE 10 ML IV SCH (12:18)
[2018-04-08] MEDS: PROTONIX PO SCH (12:19)
[2018-04-11] MEDS ORDERED: CATAPRES-TTS PATCH TD SCH (10:00)
== END 2018-04-08 15:00 | DRG 377 ==
LOC: ED 10:38 → 4A 15:15 → EEVIPCON 15:15
PROVIDERS: ADMIT Internal Medicine; ATTEND Internal Medicine
PROC: 0DJD8ZZ Inspection of Lower Intestinal Tract, Via Natural or Artificial Opening Endoscopic (ICD-10-PCS; principal; 2018-04-06)
DX: K57.31 Diverticulosis of large intestine without perforation or abscess with bleeding (principal); G93.40 Encephalopathy, unspecified; E87.0 Hyperosmolality and hypernatremia; I69.354 Hemiplegia and hemiparesis following cerebral infarction affecting left non-dominant side; K64.8 Other hemorrhoids; F17.200 Nicotine dependence, unspecified, uncomplicated; J44.9 Chronic obstructive pulmonary disease, unspecified; I25.10 Atherosclerotic heart disease of native coronary artery without angina pectoris; F03.90 Unspecified dementia, unspecified severity, without behavioral disturbance, psychotic disturbance, mood disturbance, and anxiety; F20.9 Schizophrenia, unspecified; F32.9 Major depressive disorder, single episode, unspecified; E11.9 Type 2 diabetes mellitus without complications; I11.0 Hypertensive heart disease with heart failure; I50.9 Heart failure, unspecified; I44.7 Left bundle-branch block, unspecified; R47.1 Dysarthria and anarthria; F41.9 Anxiety disorder, unspecified; G40.909 Epilepsy, unspecified, not intractable, without status epilepticus; H54.8 Legal blindness, as defined in USA; Z79.82 Long term (current) use of aspirin; Z79.899 Other long term (current) drug therapy; I25.2 Old myocardial infarction; I69.322 Dysarthria following cerebral infarction
CPT/HCPCS: 36415; 71045; 78278; 80048; 80053; 82271; 82962; 83036; 83690; 84132; 85014; 85018; 85025; 85027; 85610; 85730; 86850; 86900; 86901; 93005; 93010; A9560; C9113; J1642; J2704; J3480; J7030; J7042; J7070

== ENCOUNTER 2019-02-19 16:54 | Inpatient (IN) | payer MEDICARE ==
[2019-02-19] MEDS ORDERED: NACL 0.9% 1000 ML 1,000 ML IV ONE ×2 (17:13→18:32)
[2019-02-19 17:39] LABS: Hematocrit 33.8 % (30.3-42.9); Hemoglobin 11.7 gm/dl (10.1-14.3); Mean Corpuscular HGB Conc 35 % (30-34); Mean Corpuscular Volume 93 fl (79-97); Red Blood Count 3.65 M/mm3 (3.65-5.03); Red Cell Distribution Width 16.2 % (13.2-15.2)
--- NOTE | 2019-02-19 17:43 | Emergency Department Report ---
ED Altered Mental Status HPI - General Chief Complaint: Altered Mental Status Stated Complaint: AMS Time Seen by Provider: 02/19/19 17:02 Source: EMS, old records reviewed Mode of arrival: Stretcher Limitations: Altered Mental Status, Physical Limitation - History of Present Illness Initial Comments: 63-year-old female with a past medical history of dementia, chf, schizophrenia, CVA with right-sided hemiparesis, legal blindness, anxiety, seizure disorder, hypertension, and depression presents from the longterm with alteration in mental status. At baseline patient is oriented 1 and could have a conversation. Today longterm staff noted the patient was less responsive than her baseline. No reports of fever. EMS up with a systolic pressure of 80 in transport. Accu-Chek 95 upon arrival. Patient is from [facility] with listed PMD Dr. Karl Baltazar - Related Data Home Medications Medication Instructions Recorded Confirmed Last Taken Aspirin 325 mg PO DAILY 04/04/18 04/04/18 Unknown Atorvastatin Calcium 40 mg PO DAILY 04/04/18 04/04/18 Unknown Carvedilol [Coreg] 12.5 mg PO BID 04/04/18 04/04/18 Unknown Clopidogrel [Plavix] 75 mg PO QDAY 04/04/18 04/04/18 Unknown LORazepam [Ativan] 1 mg PO TID 04/04/18 04/04/18 Unknown Lisinopril [Zestril TAB] 20 mg PO QDAY 04/04/18 04/04/18 Unknown Loratadine [Claritin] 10 mg PO DAILY 04/04/18 04/04/18 Unknown Mometasone Furoate [Nasonex] 2 spray NS QDAY 04/04/18 04/04/18 Unknown OLANZapine [Zyprexa Zydis] 15 mg PO DAILY 04/04/18 04/04/18 Unknown Polyethylene Glycol 3350 [Miralax 17 gm PO QDAY 04/04/18 04/04/18 Unknown 3350] Allergies Allergy/AdvReac Type Severity Reaction Status Date / Time No Known Allergies Allergy Unverified 07/03/16 16:32 ED Review of Systems ROS: Stated complaint: AMS Other details as noted in HPI Comment: All other systems reviewed and negative ED Past Medical Hx - Past Medical History Previous Medical History?: Yes Hx Hypertension: Yes Hx CVA: Yes Hx Diabetes: Yes Hx Seizures: Yes Hx COPD: Yes Hx Dementia: Yes Additional medical history: Generalized ms weakness. anxiety disorder. Legal blindness. Schizophrenia. Epilepsy - Social History Smoking Status: Unknown if ever smoked Substance Use Type: None - Medications Home Medications: Home Medications Medication Instructions Recorded Confirmed Last Taken Type Aspirin 325 mg PO DAILY 04/04/18 04/04/18 Unknown History Atorvastatin Calcium 40 mg PO DAILY 04/04/18 04/04/18 Unknown History Carvedilol [Coreg] 12.5 mg PO BID 04/04/18 04/04/18 Unknown History Clopidogrel [Plavix] 75 mg PO QDAY 04/04/18 04/04/18 Unknown History LORazepam [Ativan] 1 mg PO TID 04/04/18 04/04/18 Unknown History Lisinopril [Zestril TAB] 20 mg PO QDAY 04/04/18 04/04/18 Unknown History Loratadine [Claritin] 10 mg PO DAILY 04/04/18 04/04/18 Unknown History Mometasone Furoate [Nasonex] 2 spray NS QDAY 04/04/18 04/04/18 Unknown History OLANZapine [Zyprexa Zydis] 15 mg PO DAILY 04/04/18 04/04/18 Unknown History Polyethylene Glycol 3350 [Miralax 17 gm PO QDAY 04/04/18 04/04/18 Unknown History 3350] ED Physical Exam - General Limitations: Altered Mental Status, Physical Limitation - Other Other exam information: General: No limitations, patient is alert in no acute distress Head exam: Atraumatic, normocephalic Eyes exam: Normal appearance, pupils equal reactive to light, extraocular movements intact ENT: Dry mucous membranes Neck exam: Normal inspection, full range of motion, no meningismus nontender Respiratory exam: Clear to auscultation bilateral, no wheezes, rales, crackles Cardiovascular: Normal rate and rhythm, normal heart sounds Abdomen: Soft, nondistended, and nontender, with normal bowel sounds, no rebound, or guarding. No current headache Extremity: Full range of motion normal inspection no deformity Back: Normal Inspection, full range of motion, no tenderness Neurologic: Alert, opens eyes spontaneous, very difficult to understand speech. Right-sided hemiparesis. Localizes pain. We can stencil printer on the left and weak foot dorsiflexion. Skin: Warm, dry, intact ED Course Vital Signs 07/02/19/19 02/19/19 17:15 17:26 17:30 Temperature 98.1 F Pulse Rate 77 73 Respiratory 20 12 14 Rate Blood Pressure 82/30 81/48 O2 Sat by Pulse 99 98 Oximetry 02/19/19 02/19/19 02/19/19 17:45 18:00 18:15 Temperature Pulse Rate 76 70 87 Respiratory 11 L 12 14 Rate Blood Pressure 82/53 92/61 85/41 O2 Sat by Pulse 97 98 99 Oximetry 02/19/19 02/19/19 02/19/19 18:30 18:45 19:00 Temperature Pulse Rate 84 90 86 Respiratory 13 15 15 Rate Blood Pressure 103/58 96/67 100/52 O2 Sat by Pulse 98 98 97 Oximetry 02/19/19 02/19/19 19:16 19:30 Temperature Pulse Rate 92 H 96 H Respiratory 28 H 12 Rate Blood Pressure 111/84 103/73 O2 Sat by Pulse 97 98 Oximetry - Lab Data Result diagrams: 02/19/19 17:18 02/19/19 17:18 Lab Results 02/19/19 02/19/19 02/19/19 Range/Units 17:04 17:18 17:18 WBC 6.4 (4.5-11.0) K/mm3 RBC 3.65 (3.65-5.03) M/mm3 Hgb 11.7 (10.1-14.3) gm/dl Hct 33.8 (30.3-42.9) % MCV 93 (79-97) fl MCH 32 (28-32) pg MCHC 35 H (30-34) % RDW 16.2 H (13.2-15.2) % Plt Count 164 (140-440) K/mm3 Add Manual Diff Complete Total Counted 100 Seg Neuts % (Manual) 64.0 (40.0-70.0) % Band Neutrophils % 0 % Lymphocytes % (Manual) 27.0 (13.4-35.0) % Reactive Lymphs % (Man) 0 % Monocytes % (Manual) 7.0 (0.0-7.3) % Eosinophils % (Manual) 2.0 (0.0-4.3) % Basophils % (Manual) 0 (0.0-1.8) % Metamyelocytes % 0 % Myelocytes % 0 % Promyelocytes % 0 % Blast Cells % 0 % Nucleated RBC % Not Reportable Seg Neutrophils # Man 4.1 (1.8-7.7) K/mm3 Band Neutrophils # 0.0 K/mm3 Lymphocytes # (Manual) 1.7 (1.2-5.4) K/mm3 Abs React Lymphs (Man) 0.0 K/mm3 Monocytes # (Manual) 0.4 (0.0-0.8) K/mm3 Eosinophils # (Manual) 0.1 (0.0-0.4) K/mm3 Basophils # (Manual) 0.0 (0.0-0.1) K/mm3 Metamyelocytes # 0.0 K/mm3 Myelocytes # 0.0 K/mm3 Promyelocytes # 0.0 K/mm3 Blast Cells # 0.0 K/mm3 WBC Morphology Not Reportable Hypersegmented Neuts Not Reportable Hyposegmented Neuts Not Reportable Hypogranular Neuts Not Reportable Smudge Cells Not Reportable Toxic Granulation Not Reportable Toxic Vacuolation Not Reportable Dohle Bodies Not Reportable Pelger-Huet Anomaly Not Reportable Maxx Rods Not Reportable Platelet Estimate Consistent w auto Clumped Platelets Not Reportable Plt Clumps, EDTA Not Reportable Large Platelets 1+ Giant Platelets Not Reportable Platelet Satelliting Not Reportable Plt Morphology Comment Not Reportable RBC Morphology Not Reportable Dimorphic RBCs Not Reportable Polychromasia Not Reportable Hypochromasia Not Reportable Poikilocytosis Not Reportable Anisocytosis 1+ Microcytosis Not Reportable Macrocytosis Not Reportable Spherocytes Not Reportable Pappenheimer Bodies Not Reportable Sickle Cells Not Reportable Target Cells Not Reportable Tear Drop Cells Not Reportable Ovalocytes 1+ Helmet Cells Not Reportable Meier-Garden Bodies Not Reportable Bangs Rings Not Reportable Janet Cells Not Reportable Bite Cells Not Reportable Crenated Cell Not Reportable Elliptocytes Few Acanthocytes (Spur) Not Reportable Rouleaux Not Reportable Hemoglobin C Crystals Not Reportable Schistocytes Not Reportable Malaria parasites Not Reportable Lc Bodies Not Reportable Hem Pathologist Commnt No Sodium 141 (137-145) mmol/L Potassium 4.3 (3.6-5.0) mmol/L Chloride 102.0 (98-107) mmol/L Carbon Dioxide 31 H (22-30) mmol/L Anion Gap 12 mmol/L BUN 20 H (7-17) mg/dL Creatinine 0.7 (0.7-1.2) mg/dL Estimated GFR > 60 ml/min BUN/Creatinine Ratio 29 % Glucose 90 (65-100) mg/dL POC Glucose 95 (70-105) Lactic Acid (0.7-2.0) mmol/L Calcium 8.8 (8.4-10.2) mg/dL Total Bilirubin 0.20 (0.1-1.2) mg/dL AST 16 (5-40) units/L ALT 15 (7-56) units/L Alkaline Phosphatase 49 (35-129) units/L Total Creatine Kinase 98 (30-135) units/L CK-MB (CK-2) 2.1 (0.0-4.0) ng/mL CK-MB (CK-2) Rel Index 2.1 (0-4) Troponin T < 0.010 (0.00-0.029) ng/mL Total Protein 7.1 (6.3-8.2) g/dL Albumin 4.0 (3.9-5) g/dL Albumin/Globulin Ratio 1.3 % TSH (0.270-4.200) mlU/mL Free T4 (0.76-1.46) ng/dL Urine Color (Yellow) Urine Turbidity (Clear) Urine pH (5.0-7.0) Ur Specific Bradley (1.003-1.030) Urine Protein (Negative) mg/dL Urine Glucose (UA) (Negative) mg/dL Urine Ketones (Negative) mg/dL Urine Blood (Negative) Urine Nitrite (Negative) Urine Bilirubin (Negative) Urine Urobilinogen (<2.0) mg/dL Ur Leukocyte Esterase (Negative) Urine WBC (Auto) (0.0-6.0) /HPF Urine RBC (Auto) (0.0-6.0) /HPF Urine Mucus /HPF Valproic Acid (50-100) ug/mL 02/19/19 02/19/19 02/19/19 Range/Units 17:18 17:18 17:41 WBC (4.5-11.0) K/mm3 RBC (3.65-5.03) M/mm3 Hgb (10.1-14.3) gm/dl Hct (30.3-42.9) % MCV (79-97) fl MCH (28-32) pg MCHC (30-34) % RDW (13.2-15.2) % Plt Count (140-440) K/mm3 Add Manual Diff Total Counted Seg Neuts % (Manual) (40.0-70.0) % Band Neutrophils % % Lymphocytes % (Manual) (13.4-35.0) % Reactive Lymphs % (Man) % Monocytes % (Manual) (0.0-7.3) % Eosinophils % (Manual) (0.0-4.3) % Basophils % (Manual) (0.0-1.8) % Metamyelocytes % % Myelocytes % % Promyelocytes % % Blast Cells % % Nucleated RBC % Seg Neutrophils # Man (1.8-7.7) K/mm3 Band Neutrophils # K/mm3 Lymphocytes # (Manual) (1.2-5.4) K/mm3 Abs React Lymphs (Man) K/mm3 Monocytes # (Manual) (0.0-0.8) K/mm3 Eosinophils # (Manual) (0.0-0.4) K/mm3 Basophils # (Manual) (0.0-0.1) K/mm3 Metamyelocytes # K/mm3 Myelocytes # K/mm3 Promyelocytes # K/mm3 Blast Cells # K/mm3 WBC Morphology Hypersegmented Neuts Hyposegmented Neuts Hypogranular Neuts Smudge Cells Toxic Granulation Toxic Vacuolation Dohle Bodies Pelger-Huet Anomaly Maxx Rods Platelet Estimate Clumped Platelets Plt Clumps, EDTA Large Platelets Giant Platelets Platelet Satelliting Plt Morphology Comment RBC Morphology Dimorphic RBCs Polychromasia Hypochromasia Poikilocytosis Anisocytosis Microcytosis Macrocytosis Spherocytes Pappenheimer Bodies Sickle Cells Target Cells Tear Drop Cells Ovalocytes Helmet Cells Meier-Garden Bodies Bangs Rings [place] Cells Bite Cells Crenated Cell Elliptocytes Acanthocytes (Spur) Rouleaux Hemoglobin C Crystals Schistocytes Malaria parasites Lc Bodies Hem Pathologist Commnt Sodium (137-145) mmol/L Potassium (3.6-5.0) mmol/L Chloride (98-107) mmol/L Carbon Dioxide (22-30) mmol/L Anion Gap mmol/L BUN (7-17) mg/dL Creatinine (0.7-1.2) mg/dL Estimated GFR ml/min BUN/Creatinine Ratio % Glucose (65-100) mg/dL POC Glucose (70-105) Lactic Acid (0.7-2.0) mmol/L Calcium (8.4-10.2) mg/dL Total Bilirubin (0.1-1.2) mg/dL AST (5-40) units/L ALT (7-56) units/L Alkaline Phosphatase (35-129) units/L Total Creatine Kinase (30-135) units/L CK-MB (CK-2) (0.0-4.0) ng/mL CK-MB (CK-2) Rel Index (0-4) Troponin T (0.00-0.029) ng/mL Total Protein (6.3-8.2) g/dL Albumin (3.9-5) g/dL Albumin/Globulin Ratio % TSH 4.300 H (0.270-4.200) mlU/mL Free T4 1.31 (0.76-1.46) ng/dL Urine Color Dark yellow (Yellow) Urine Turbidity Slightly-cloudy (Clear) Urine pH 5.0 (5.0-7.0) Ur Specific Bradley 1.018 (1.003-1.030) Urine Protein <15 mg/dl (Negative) mg/dL Urine Glucose (UA) Neg (Negative) mg/dL Urine Ketones Tr (Negative) mg/dL Urine Blood Neg (Negative) Urine Nitrite Neg (Negative) Urine Bilirubin Neg (Negative) Urine Urobilinogen 2.0 (<2.0) mg/dL Ur Leukocyte Esterase Mod (Negative) Urine WBC (Auto) 97.0 H (0.0-6.0) /HPF Urine RBC (Auto) 1.0 (0.0-6.0) /HPF Urine Mucus 2+ /HPF Valproic Acid 51.6 (50-100) ug/mL 02/19/19 Range/Units 18:35 WBC (4.5-11.0) K/mm3 RBC (3.65-5.03) M/mm3 Hgb (10.1-14.3) gm/dl Hct (30.3-42.9) % MCV (79-97) fl MCH (28-32) pg MCHC (30-34) % RDW (13.2-15.2) % Plt Count (140-440) K/mm3 Add Manual Diff Total Counted Seg Neuts % (Manual) (40.0-70.0) % Band Neutrophils % % Lymphocytes % (Manual) (13.4-35.0) % Reactive Lymphs % (Man) % Monocytes % (Manual) (0.0-7.3) % Eosinophils % (Manual) (0.0-4.3) % Basophils % (Manual) (0.0-1.8) % Metamyelocytes % % Myelocytes % % Promyelocytes % % Blast Cells % % Nucleated RBC % Seg Neutrophils # Man (1.8-7.7) K/mm3 Band Neutrophils # K/mm3 Lymphocytes # (Manual) (1.2-5.4) K/mm3 Abs React Lymphs (Man) K/mm3 Monocytes # (Manual) (0.0-0.8) K/mm3 Eosinophils # (Manual) (0.0-0.4) K/mm3 Basophils # (Manual) (0.0-0.1) K/mm3 Metamyelocytes # K/mm3 Myelocytes # K/mm3 Promyelocytes # K/mm3 Blast Cells # K/mm3 WBC Morphology Hypersegmented Neuts Hyposegmented Neuts Hypogranular Neuts Smudge Cells Toxic Granulation Toxic Vacuolation Dohle Bodies Pelger-Huet Anomaly Maxx Rods Platelet Estimate Clumped Platelets Plt Clumps, EDTA Large Platelets Giant Platelets Platelet Satelliting Plt Morphology Comment RBC Morphology Dimorphic RBCs Polychromasia Hypochromasia Poikilocytosis Anisocytosis Microcytosis Macrocytosis Spherocytes Pappenheimer Bodies Sickle Cells Target Cells Tear Drop Cells Ovalocytes Helmet Cells Meier-Garden Bodies Bangs Rings [place] Cells Bite Cells Crenated Cell Elliptocytes Acanthocytes (Spur) Rouleaux Hemoglobin C Crystals Schistocytes Malaria parasites Lc Bodies Hem Pathologist Commnt Sodium (137-145) mmol/L Potassium (3.6-5.0) mmol/L Chloride (98-107) mmol/L Carbon Dioxide (22-30) mmol/L Anion Gap mmol/L BUN (7-17) mg/dL Creatinine (0.7-1.2) mg/dL Estimated GFR ml/min BUN/Creatinine Ratio % Glucose (65-100) mg/dL POC Glucose (70-105) Lactic Acid 1.40 (0.7-2.0) mmol/L Calcium (8.4-10.2) mg/dL Total Bilirubin (0.1-1.2) mg/dL AST (5-40) units/L ALT (7-56) units/L Alkaline Phosphatase (35-129) units/L Total Creatine Kinase (30-135) units/L CK-MB (CK-2) (0.0-4.0) ng/mL CK-MB (CK-2) Rel Index (0-4) Troponin T (0.00-0.029) ng/mL Total Protein (6.3-8.2) g/dL Albumin (3.9-5) g/dL Albumin/Globulin Ratio % TSH (0.270-4.200) mlU/mL Free T4 (0.76-1.46) ng/dL Urine Color (Yellow) Urine Turbidity (Clear) Urine pH (5.0-7.0) Ur Specific Bradley (1.003-1.030) Urine Protein (Negative) mg/dL Urine Glucose (UA) (Negative) mg/dL Urine Ketones (Negative) mg/dL Urine Blood (Negative) Urine Nitrite (Negative) Urine Bilirubin (Negative) Urine Urobilinogen (<2.0) mg/dL Ur Leukocyte Esterase (Negative) Urine WBC (Auto) (0.0-6.0) /HPF Urine RBC (Auto) (0.0-6.0) /HPF Urine Mucus /HPF Valproic Acid (50-100) ug/mL - EKG Data -: EKG Interpreted by Tn EKG shows normal: sinus rhythm, axis (qrs -32), QRS complexes (qrsd 138), ST-T waves (no stemi) Rate: normal (lbb) When compared to previous EKG there are: no significant change - Radiology Data Radiology results: report reviewed PROCEDURE: XR CHEST 1V AP TECHNIQUE: Chest radiograph anteroposterior view. CPT 49613 HISTORY: CHF COMPARISON: No prior studies are available for comparison. FINDINGS: Heart: Normal. Mediastinum/Vessels: Normal. Lungs/Pleural space: Normal. Bony thorax: No acute osseous abnormality. Life support devices: None. IMPRESSION: No acute cardiopulmonary abnormality. - Medical Decision Making hypotension is responding to NS bolus + uti tx with rocephin Cultures pending [facility] - Differential Diagnosis CVA, encephalopathy, infection, sepsis, renal failure Critical Care Time: No Critical care attestation.: If time is entered above; I have spent that time in minutes in the direct care of this critically ill patient, excluding procedure time. ED Disposition Clinical Impression: UTI (urinary tract infection), Sepsis, Dementia, Mental status alteration, History of CVA with residual deficit Disposition: OP ADMIT IP TO THIS HOSP Is pt being admited?: Yes Condition: Stable Time of Disposition: 19:35 (mendoza COUNTER PROFESSIONAL/hospitalist)
[2019-02-19 17:50] LABS: Platelet Count 164 K/mm3 (140-440)
[2019-02-19 17:52] LABS: Creatine Kinase MB 2.1 ng/mL (0.0-4.0)
[2019-02-19 17:53] LABS: Alanine Aminotransferase 15 units/L (7-56); BUN/Creatinine Ratio 29; Blood Urea Nitrogen 20 mg/dL (7-17); Calcium 8.8 mg/dL (8.4-10.2); Hemolysis Index 7
[2019-02-19 18:09] LABS: Free T4 (Free Thyroxine) 1.31 ng/dL (0.76-1.46)
--- NOTE | 2019-02-19 18:16 | XRay Report ---
CHEST 1 VIEW INDICATION: ams COMPARISON: None FINDINGS: Support devices: None Heart: Normal Lungs/Pleura: No acute pulmonary or pleural findings. IMPRESSION: 1. No acute disease. Signer Name: Rom Yen MD Signed: 02/19/2019 6:11 PM Workstation Name: [id number]
[2019-02-19 18:17] LABS: Bilirubin,Urine NEG (Negative); Blood,Urine NEG (Negative); Mucus,Urine 2+ /HPF; Protein,Urine <15 mg/dL mg/dL (Negative)
[2019-02-19 18:18] LABS: Color,Urine Dark Yellow (Yellow)
[2019-02-19 18:28] LABS: Basophils % (Manual) 0 % (0.0-1.8); Total Cells Counted 100
[2019-02-19 18:29] LABS: Anisocytosis 1+; Large Platelets 1+; Ovalocytes 1+; Platelet Estimate Consistent w Auto
[2019-02-19] MEDS ORDERED: ROCEPHIN/NS 1 GM/50 ML 1 GM/50 ML BAG IV ONE (18:31)
[2019-02-19] MEDS ORDERED: TYLENOL PO PRN (19:47)
[2019-02-19] MEDS ORDERED: ZOFRAN IV PRN (19:47)
[2019-02-19] MEDS ORDERED: SODIUM CHLORIDE FLUSH SYRINGE 10 ML IV PRN (19:47)
[2019-02-19] MEDS ORDERED: NACL 0.9% 1000 ML 1,000 ML IV SCH (20:00)
--- NOTE | 2019-02-19 20:50 | Cat Scan Report ---
CT HEAD WITHOUT CONTRAST INDICATION / CLINICAL INFORMATION: ams. Altered mental status. TECHNIQUE: All CT scans at this location are performed using CT dose reduction for ALARA by means of automated e xposure control. COMPARISON: None available. FINDINGS: HEMORRHAGE: No evidence of intracranial hemorrhage or extra-axial fluid collection. EXTRA-AXIAL SPACES: Cortical sulci, sylvian fissures and basilar cisterns have an unremarkable appear ance. VENTRICULAR SYSTEM: The ventricular system is of normal size and configuration. CEREBRAL PARENCHYMA: Large areas of encephalomalacia are observed in the medial temporal lobes and oc cipital lobes bilaterally secondary to remote bilateral posterior cerebral artery infarctions. Enceph alomalacia is present in both cerebellar hemispheres secondary to remote cerebellar infarctions. Is n o indication of recent infarction. Advanced periventricular white matter lucency is observed in both cerebral hemispheres secondary to microvascular ischemic change. MIDLINE SHIFT OR HERNIATION: There is no mass effect. CEREBELLUM / BRAINSTEM: Brainstem has an unremarkable appearance. Several remote cerebellar infarctio ns are demonstrated bilaterally. INTRACRANIAL VESSELS: Calcified atherosclerotic plaque is seen along the course of the cavernous segm ents of both internal carotid arteries. This extends up into the supraclinoid region. Similar finding s are seen along the course of the basilar artery. ORBITS: visualized portions of the orbits have an unremarkable appearance. SOFT TISSUES of HEAD: No significant abnormality. CALVARIUM: Evaluation of bone windows reveals no abnormalities. PARANASAL SINUSES / MASTOID AIR CELLS: Inflammatory mucosal changes are present in the left sphenoid sinus. Paranasal sinuses are otherwise free from inflammatory mucosal disease. Mastoid air cells are normally pneumatized. IMPRESSION: 1. Remote bilateral posterior cerebral artery infarctions. 2. Remote bilateral cerebellar infarctions. 3. No acute intracranial abnormality. Signer Name: Rock Proctor MD Signed: 02/19/2019 8:46 PM Workstation Name: [id number]
[2019-02-19] MEDS ORDERED: PROVENTIL IH PRN (21:21)
[2019-02-19] MEDS ORDERED: D50W (25GM) Syringe IV PRN (21:22)
--- NOTE | 2019-02-19 21:22 | History and Physical Report ---
History of Present Illness Date of examination: 02/19/19 Date of admission: 02/19/19 19:47 Chief complaint: Altered mental status History of present illness: 63-year-old -[place] female who resides at [facility] with history of hypertension, dementia, heart failure, CVA with right sided hemiparesis, schizophrenia, depression, legally blind, epilepsy who presents to [facility] ED complaints of altered mental status. Patient is poor hist orian and history is provided by EMS and correction staff. At baseline patient is oriented 1 and is able to maintain conversation. retirement staff states that patient was noted to be less responsive and not at baseline. EMS was called and upon arrival to our facility she was found to be hypertensive with systolic blood pressure in the 80s. Patient's PCP is Dr. Karl Baltazar. Past History Past Medical History: COPD, diabetes (type 2), heart failure, hypertension, stroke (with residual right-sided weakness), other (dementia, legally blind, Monday, schizophrenia, epilepsy) Medications and Allergies Allergies Allergy/AdvReac Type Severity Reaction Status Date / Time No Known Allergies Allergy Unverified 07/03/16 16:32 Home Medications Medication Instructions Recorded Confirmed Last Taken Type Aspirin 325 mg PO DAILY 04/04/18 02/19/19 Unknown History Atorvastatin Calcium 40 mg PO DAILY 04/04/18 02/19/19 Unknown History Carvedilol [Coreg] 12.5 mg PO BID 04/04/18 02/19/19 Unknown History Clopidogrel [Plavix] 75 mg PO QDAY 04/04/18 02/19/19 Unknown History Lisinopril [Zestril TAB] 20 mg PO QDAY 04/04/18 02/19/19 Unknown History OLANZapine [Zyprexa Zydis] 15 mg PO DAILY 04/04/18 02/19/19 Unknown History Polyethylene Glycol 3350 [Miralax 17 gm PO QDAY 04/04/18 02/19/19 Unknown History 3350] Acetaminophen 325 mg PO Q4H PRN 02/19/19 02/19/19 Unknown History Depakote Sprinkle 125 mg PO TID 02/19/19 02/19/19 Unknown History Eugenol 1 applicator PO Q6H 02/19/19 02/19/19 Unknown History Percocet 5/325 mg 5 - 325 mg PO Q6H PRN 02/19/19 02/19/19 Unknown History Remeron 15mg TAB 15 mg PO QHS 02/19/19 02/19/19 Unknown History Robitussin 10 ml PO Q4H PRN 02/19/19 02/19/19 Unknown History traMADol 50 mg PO Q8H 02/19/19 02/19/19 Unknown History Active Meds: Active Medications Acetaminophen (Tylenol) 650 mg PO Q4H PRN PRN Reason: Pain MILD(1-3)/Fever >100.5/PAN Enoxaparin Sodium (Lovenox) 40 mg SUB-Q QDAY ANALIA Sodium Chloride (Nacl 0.9% 1000 Ml) 1,000 mls @ 42 mls/hr IV DIRECT ANALIA Ceftriaxone Sodium (Rocephin/Ns 1 Gm/50 Ml) 1 gm in 50 mls @ 100 mls/hr IV Q24HR ANALIA; Protocol Ondansetron HCl (Zofran) 4 mg IV Q8H PRN PRN Reason: Nausea And Vomiting Sodium Chloride (Sodium Chloride Flush Syringe 10 Ml) 10 ml IV BID ANALIA Sodium Chloride (Sodium Chloride Flush Syringe 10 Ml) 10 ml IV PRN PRN PRN Reason: LINE FLUSH Review of Systems ROS unobtainable: due to mental status Exam - Physical Exam Narrative exam: Physical exam General appearance: Present: No acute distress, oriented to self, awake, well- developed -[place] female - EENT Eyes: Present: PERRL, EOM intact ENT: hearing intact, poor dentition - Neck Neck: Present: supple, normal ROM - Respiratory Respiratory effort: Non-labored Respiratory: bilateral: diminished (bases) - Cardiovascular Heart rate: 71 (bpm) Rhythm: regular Heart Sounds: Present: S1 & S2. Absent: rub, click - Extremities Extremities: no ischemia, pulses intact, - Peripheral Assessment Peripheral Pulses: within normal limits - Abdominal General gastrointestinal: soft, non-tender, normal bowel sounds - Integumentary Integumentary: Present: warm, dry - Musculoskeletal Musculoskeletal: generalized weakness, right-sided hemiparesis - Psychiatric Psychiatric: Calm - Constitutional Vitals: Temp Pulse Resp BP Pulse Ox 98.1 F 96 H 12 103/73 98 02/19/19 17:15 02/19/19 19:30 02/19/19 19:30 02/19/19 19:30 02/19/19 19:30 Results - Labs CBC & Chem 7: 02/19/19 17:18 02/19/19 17:18 Labs: Laboratory Last Values WBC 6.4 K/mm3 (4.5-11.0) 02/19/19 17:18 RBC 3.65 M/mm3 (3.65-5.03) 02/19/19 17:18 Hgb 11.7 gm/dl (10.1-14.3) 02/19/19 17:18 Hct 33.8 % (30.3-42.9) 02/19/19 17:18 MCV 93 fl (79-97) 02/19/19 17:18 MCH 32 pg (28-32) 02/19/19 17:18 MCHC 35 % (30-34) H 02/19/19 17:18 RDW 16.2 % (13.2-15.2) H 02/19/19 17:18 Plt Count 164 K/mm3 (140-440) 02/19/19 17:18 Add Manual Diff Complete 02/19/19 17:18 Total Counted 100 02/19/19 17:18 Seg Neuts % (Manual) 64.0 % (40.0-70.0) 02/19/19 17:18 0 % 02/19/19 17:18 27.0 % (13.4-35.0) 02/19/19 17:18 Reactive Lymphs % (Man) 0 % 02/19/19 17:18 7.0 % (0.0-7.3) 02/19/19 17:18 2.0 % (0.0-4.3) 02/19/19 17:18 0 % (0.0-1.8) 02/19/19 17:18 0 % 02/19/19 17:18 0 % 02/19/19 17:18 0 % 02/19/19 17:18 0 % 02/19/19 17:18 Nucleated RBC % Not Reportable 02/19/19 17:18 Seg Neutrophils # Man 4.1 K/mm3 (1.8-7.7) 02/19/19 17:18 Band Neutrophils # 0.0 K/mm3 02/19/19 17:18 1.7 K/mm3 (1.2-5.4) 02/19/19 17:18 Abs React Lymphs (Man) 0.0 K/mm3 02/19/19 17:18 0.4 K/mm3 (0.0-0.8) 02/19/19 17:18 0.1 K/mm3 (0.0-0.4) 02/19/19 17:18 0.0 K/mm3 (0.0-0.1) 02/19/19 17:18 0.0 K/mm3 02/19/19 17:18 0.0 K/mm3 02/19/19 17:18 0.0 K/mm3 02/19/19 17:18 Blast Cells # 0.0 K/mm3 02/19/19 17:18 WBC Morphology Not Reportable 02/19/19 17:18 Hypersegmented Neuts Not Reportable 02/19/19 17:18 Hyposegmented Neuts Not Reportable 02/19/19 17:18 Hypogranular Neuts Not Reportable 02/19/19 17:18 Not Reportable 02/19/19 17:18 Not Reportable 02/19/19 17:18 Not Reportable 02/19/19 17:18 Not Reportable 02/19/19 17:18 Not Reportable 02/19/19 17:18 Not Reportable 02/19/19 17:18 Consistent w auto 02/19/19 17:18 Not Reportable 02/19/19 17:18 Plt Clumps, EDTA Not Reportable 02/19/19 17:18 1+ 02/19/19 17:18 Not Reportable 02/19/19 17:18 Not Reportable 02/19/19 17:18 Plt Morphology Comment Not Reportable 02/19/19 17:18 RBC Morphology Not Reportable 02/19/19 17:18 Dimorphic RBCs Not Reportable 02/19/19 17:18 Not Reportable 02/19/19 17:18 Not Reportable 02/19/19 17:18 Not Reportable 02/19/19 17:18 1+ 02/19/19 17:18 Not Reportable 02/19/19 17:18 Not Reportable 02/19/19 17:18 Not Reportable 02/19/19 17:18 Not Reportable 02/19/19 17:18 Not Reportable 02/19/19 17:18 Not Reportable 02/19/19 17:18 Not Reportable 02/19/19 17:18 1+ 02/19/19 17:18 Not Reportable 02/19/19 17:18 Not Reportable 02/19/19 17:18 Not Reportable 02/19/19 17:18 Not Reportable 02/19/19 17:18 Not Reportable 02/19/19 17:18 Not Reportable 02/19/19 17:18 Few 02/19/19 17:18 Acanthocytes (Spur) Not Reportable 02/19/19 17:18 Rouleaux Not Reportable 02/19/19 17:18 Not Reportable 02/19/19 17:18 Not Reportable 02/19/19 17:18 Not Reportable 02/19/19 17:18 Not Reportable 02/19/19 17:18 Hem Pathologist Commnt No 02/19/19 17:18 VBG pH 7.325 (7.320-7.420) 02/19/19 19:10 Sodium 141 mmol/L (137-145) 02/19/19 17:18 Potassium 4.3 mmol/L (3.6-5.0) 02/19/19 17:18 Chloride 102.0 mmol/L (98-107) 02/19/19 17:18 Carbon Dioxide 31 mmol/L (22-30) H 02/19/19 17:18 12 mmol/L 02/19/19 17:18 BUN 20 mg/dL (7-17) H 02/19/19 17:18 0.7 mg/dL (0.7-1.2) 02/19/19 17:18 Estimated GFR > 60 ml/min 02/19/19 17:18 29 % 02/19/19 17:18 Glucose 90 mg/dL (65-100) 02/19/19 17:18 POC Glucose 95 (70-105) 02/19/19 17:04 Lactic Acid 1.40 mmol/L (0.7-2.0) 02/19/19 18:35 Calcium 8.8 mg/dL (8.4-10.2) 02/19/19 17:18 0.20 mg/dL (0.1-1.2) 02/19/19 17:18 AST 16 units/L (5-40) 02/19/19 17:18 ALT 15 units/L (7-56) 02/19/19 17:18 49 units/L (35-129) 02/19/19 17:18 98 units/L (30-135) 02/19/19 17:18 CK-MB (CK-2) 2.1 ng/mL (0.0-4.0) 02/19/19 17:18 CK-MB (CK-2) Rel Index 2.1 (0-4) 02/19/19 17:18 < 0.010 ng/mL (0.00-0.029) 02/19/19 17:18 7.1 g/dL (6.3-8.2) 02/19/19 17:18 4.0 g/dL (3.9-5) 02/19/19 17:18 1.3 % 02/19/19 17:18 TSH 4.300 mlU/mL (0.270-4.200) H 02/19/19 17:18 Free T4 1.31 ng/dL (0.76-1.46) 02/19/19 17:18 Dark yellow (Yellow) 02/19/19 17:41 Slightly-cloudy (Clear) 02/19/19 17:41 5.0 (5.0-7.0) 02/19/19 17:41 Ur Specific [place] 1.018 (1.003-1.030) 02/19/19 17:41 <15 mg/dl mg/dL (Negative) 02/19/19 17:41 Neg mg/dL (Negative) 02/19/19 17:41 Tr mg/dL (Negative) 02/19/19 17:41 Neg (Negative) 02/19/19 17:41 Neg (Negative) 02/19/19 17:41 Neg (Negative) 02/19/19 17:41 2.0 mg/dL (<2.0) 02/19/19 17:41 Ur Leukocyte Esterase Mod (Negative) 02/19/19 17:41 97.0 /HPF (0.0-6.0) H 02/19/19 17:41 1.0 /HPF (0.0-6.0) 02/19/19 17:41 2+ /HPF 02/19/19 17:41 Valproic Acid 51.6 ug/mL (50-100) 02/19/19 17:18 - Imaging and Cardiology Imaging and Cardiology: CT Head: FINDINGS: HEMORRHAGE: No evidence of intracranial hemorrhage or extra-axial fluid collection. EXTRA-AXIAL SPACES: Cortical sulci, sylvian fissures and basilar cisterns have an unremarkable appearance. VENTRICULAR SYSTEM: The ventricular system is of normal size and configuration. CEREBRAL PARENCHYMA: Large areas of encephalomalacia are observed in the medial temporal lobes and occipital lobes bilaterally secondary to remote bilateral posterior cerebral artery infarctions. Encephalomalacia is present in both cerebellar hemispheres secondary to remote cerebellar infarctions. Is no indication of recent infarction. Advanced periventricular white matter lucency is observed in both cerebral hemispheres secondary to microvascular ischemic change. MIDLINE SHIFT OR HERNIATION: There is no mass effect. CEREBELLUM / BRAINSTEM: Brainstem has an unremarkable appearance. Several remote cerebellar infarctions are demonstrated bilaterally. INTRACRANIAL VESSELS: Calcified atherosclerotic plaque is seen along the course of the cavernous segments of both internal carotid arteries. This extends up into the supraclinoid region. Similar findings are seen along the course of the basilar artery. ORBITS: visualized portions of the orbits have an unremarkable appearance. SOFT TISSUES of HEAD: No significant abnormality. CALVARIUM: Evaluation of bone windows reveals no abnormalities. PARANASAL SINUSES / MASTOID AIR CELLS: Inflammatory mucosal changes are present in the left sphenoid sinus. Paranasal sinuses are otherwise free from inflammatory mucosal disease. Mastoid air cells are normally pneumatized. IMPRESSION: 1. Remote bilateral posterior cerebral artery infarctions. 2. Remote bilateral cerebellar infarctions. 3. No acute intracranial abnormality. CXR: FINDINGS: Support devices: None Heart: Normal Lungs/Pleura: No acute pulmonary or pleural findings. IMPRESSION: 1. No acute disease. Assessment and Plan Assessment and plan: 63-year-old -[place] female who resides at [facility] with history of hypertension, dementia, heart failure, CVA with right sided hemiparesis, schizophrenia, depression, legally blind, epilepsy who presents to [facility] ED complaints of altered mental status and hypo-tension. She was found to be hypo-tensive with initial blood pressure of 82/30 she was given 2 L normal saline fluid bolus and was responsive with improvement in blood pressure of 111/84. CT Head unrevealing for acute intracranial abnormality.Will admit to [facility] unit with remote telemetry monitoring. Sepsis Urinary tract infection Hypotension Dehydration DM 2 Acute encephalopathy History of CVA with right-sided hemiparesis Dementia Chronic heart failure History of Schizophrenia History of epilepsy Legally blind History of hypertension History of COPD History of depression Plan: Continue supportive care Continuous Remote telemetry monitoring Neuro checks Nothing by mouth Speech eval pending Monitor CBC Urine WBC 97 Urine and blood cultures pending Start Rocephin 1 g every 24 hours Monitor BP Gentle hydration with normal saline at 42ml/hr Currently hypotensive and is responsive to fluids. Hold all home antihypertensive medications for now POC BG monitoring SSI coverage Albuterol prn Resume Depakote, Zyprexa, and Remeron Continue ASA 325 mg daily, Plavix 75 mg daily DVT PPX on Plavix Advance Directives: No VTE prophylaxis?: Chemical Plan of care discussed with patient/family: Yes
[2019-02-19] MEDS: SODIUM CHLORIDE FLUSH SYRINGE 10 ML IV SCH (22:00)
[2019-02-19] MEDS: REMERON PO SCH (23:09)
[2019-02-20] MEDS: HumuLIN R SUB-Q SCH ×4 (01:56→18:35)
[2019-02-20 07:37] LABS: Basophils % (Auto) 0.4 % (0.0-1.8); Eosinophils # (Auto) 0.1 K/mm3 (0.0-0.4); Eosinophils % (Auto) 1.2 % (0.0-4.3); Hematocrit 32.3 % (30.3-42.9); Hemoglobin 10.9 gm/dl (10.1-14.3); Lymphocytes # (Auto) 2.9 K/mm3 (1.2-5.4); Lymphocytes % (Auto) 42.6 % (13.4-35.0); Mean Corpuscular HGB Conc 34 % (30-34); Mean Corpuscular Volume 93 fl (79-97); Monocytes # (Auto) 0.6 K/mm3 (0.0-0.8); Monocytes % (Auto) 9.1 % (0.0-7.3); Platelet Count 168 K/mm3 (140-440); Red Blood Count 3.48 M/mm3 (3.65-5.03); Red Cell Distribution Width 15.8 % (13.2-15.2)
[2019-02-20 08:01] LABS: BUN/Creatinine Ratio 26; Blood Urea Nitrogen 13 mg/dL (7-17); Calcium 8.8 mg/dL (8.4-10.2); Hemolysis Index 4
[2019-02-20] MEDS ORDERED: LOVENOX SUB-Q SCH (10:00)
[2019-02-20] MEDS: PLAVIX PO SCH (10:34)
[2019-02-20] MEDS: SODIUM CHLORIDE FLUSH SYRINGE 10 ML IV SCH ×2 (10:34→21:40)
[2019-02-20] MEDS: ASPIRIN PO SCH (10:34)
[2019-02-20] MEDS: ROCEPHIN/NS 1 GM/50 ML 1 GM/50 ML BAG IV SCH (10:39)
--- NOTE | 2019-02-20 14:04 | Progress Note ---
Assessment and Plan Assessment and plan: Patient is a 63-year-old -Citizen Of [place] woman from [facility] with a history of hypertension, dementia, heart failure, CVA with right sided hemiparesis, schizophrenia, depression, legally blind and epilepsy who presents to [facility] ED complaints of altered mental status and hypo-tension. She was found to be hypo-tensive with initial blood pressure of 82/30 she was given 2 L normal saline fluid bolus and was responsive with improvement in blood pressure of 111/84. CT Head unrevealing for acute intracranial abnormality.Will admit to [facility] unit with remote telemetry monitoring. Severe Sepsis due to UTI, responded to IVF Acute metabolic encephalopathy, poa Hypotension Dehydration DM 2 Acute encephalopathy History of CVA with right-sided hemiparesis Dementia Chronic heart failure History of Schizophrenia History of epilepsy Legally blind History of hypertension History of COPD History of depression Plan: Continue supportive care Continuous Remote telemetry monitoring Neuro checks Nothing by mouth Speech eval pending Monitor CBC Urine WBC 97 Urine and blood cultures pending Start Rocephin 1 g every 24 hours Monitor BP Gentle hydration with normal saline at 42ml/hr Currently hypotensive and is responsive to fluids. Hold all home antihypertensive medications for now POC BG monitoring SSI coverage Albuterol prn Resume Depakote, Zyprexa, and Remeron Continue ASA 325 mg daily, Plavix 75 mg daily DVT PPX on Plavix History Interval history: Patient was seen and examined. Follow-up on current diagnosis of AMS. No overnight events reported to me. Patient is confused. Imaging, nursing note, chart, labs and old chart reviewed. Hospitalist Physical - Physical exam Narrative exam: Gen: WDWN, NAD, Awake, confused, orientated x 0.5, knew her first name HEENT: NCAT, EOMI, PERRL, OP Clear Neck: supple, no adenopathy, no thyromegaly, no JVD CVS/Heart: RRR, normal S1S2, pulses present bilaterally Chest/Lungs: CTA B, Symmetrical chest expansion, good air entry bilaterally GI/Abdomen: soft, NTND, good bowel sounds, no guarding or rebound /Bladder:+ suprapubic tenderness, no CVA or paraspinal tenderness Extermity/Skin: no c/c/e, no obvious rash MSK: FROM x 4 Neuro: CN 2-12 grossly intact, no new focal deficits Psych: confused, yells out nonsensical things on occasion - Constitutional Vitals: Temp Pulse Resp BP Pulse Ox 98.8 F 88 18 152/80 95 02/20/19 12:04 02/20/19 12:04 02/20/19 12:04 02/20/19 12:04 02/20/19 12:04 Results - Labs CBC & Chem 7: 02/20/19 07:19 02/20/19 07:19 Labs: Laboratory Last Values WBC 6.8 K/mm3 (4.5-11.0) 02/20/19 07:19 RBC 3.48 M/mm3 (3.65-5.03) L 02/20/19 07:19 Hgb 10.9 gm/dl (10.1-14.3) 02/20/19 07:19 Hct 32.3 % (30.3-42.9) 02/20/19 07:19 MCV 93 fl (79-97) 02/20/19 07:19 MCH 31 pg (28-32) 02/20/19 07:19 MCHC 34 % (30-34) 02/20/19 07:19 RDW 15.8 % (13.2-15.2) H 02/20/19 07:19 Plt Count 168 K/mm3 (140-440) 02/20/19 07:19 Lymph % (Auto) 42.6 % (13.4-35.0) H 02/20/19 07:19 [place] % (Auto) 9.1 % (0.0-7.3) H 02/20/19 07:19 Eos % (Auto) 1.2 % (0.0-4.3) 02/20/19 07:19 Baso % (Auto) 0.4 % (0.0-1.8) 02/20/19 07:19 Lymph # 2.9 K/mm3 (1.2-5.4) 02/20/19 07:19 [place] # 0.6 K/mm3 (0.0-0.8) 02/20/19 07:19 Eos # 0.1 K/mm3 (0.0-0.4) 02/20/19 07:19 Baso # 0.0 K/mm3 (0.0-0.1) 02/20/19 07:19 Add Manual Diff Complete 02/19/19 17:18 Total Counted 100 02/19/19 17:18 Seg Neutrophils % 46.7 % (40.0-70.0) 02/20/19 07: Seg Neuts % (Manual) 64.0 % (40.0-70.0) 02/19/19 17:18 0 % 02/19/19 17:18 27.0 % (13.4-35.0) 02/19/19 17:18 Reactive Lymphs % (Man) 0 % 02/19/19 17:18 7.0 % (0.0-7.3) 02/19/19 17:18 2.0 % (0.0-4.3) 02/19/19 17:18 0 % (0.0-1.8) 02/19/19 17:18 0 % 02/19/19 17:18 0 % 02/19/19 17:18 0 % 02/19/19 17:18 0 % 02/19/19 17:18 Nucleated RBC % Not Reportable 02/19/19 17:18 Seg Neutrophils # 3.2 K/mm3 (1.8-7.7) 02/20/19 07:19 Seg Neutrophils # Man 4.1 K/mm3 (1.8-7.7) 02/19/19 17:18 Band Neutrophils # 0.0 K/mm3 02/19/19 17:18 1.7 K/mm3 (1.2-5.4) 02/19/19 17:18 Abs React Lymphs (Man) 0.0 K/mm3 02/19/19 17:18 0.4 K/mm3 (0.0-0.8) 02/19/19 17:18 0.1 K/mm3 (0.0-0.4) 02/19/19 17:18 0.0 K/mm3 (0.0-0.1) 02/19/19 17:18 0.0 K/mm3 02/19/19 17:18 0.0 K/mm3 02/19/19 17:18 0.0 K/mm3 02/19/19 17:18 Blast Cells # 0.0 K/mm3 02/19/19 17:18 WBC Morphology Not Reportable 02/19/19 17:18 Hypersegmented Neuts Not Reportable 02/19/19 17:18 Hyposegmented Neuts Not Reportable 02/19/19 17:18 Hypogranular Neuts Not Reportable 02/19/19 17:18 Not Reportable 02/19/19 17:18 Not Reportable 02/19/19 17:18 Not Reportable 02/19/19 17:18 Not Reportable 02/19/19 17:18 Not Reportable 02/19/19 17:18 Not Reportable 02/19/19 17:18 Consistent w auto 02/19/19 17:18 Not Reportable 02/19/19 17:18 Plt Clumps, EDTA Not Reportable 02/19/19 17:18 1+ 02/19/19 17:18 Not Reportable 02/19/19 17:18 Not Reportable 02/19/19 17:18 Plt Morphology Comment Not Reportable 02/19/19 17:18 RBC Morphology Not Reportable 02/19/19 17:18 Dimorphic RBCs Not Reportable 02/19/19 17:18 Not Reportable 02/19/19 17:18 Not Reportable 02/19/19 17:18 Not Reportable 02/19/19 17:18 1+ 02/19/19 17:18 Not Reportable 02/19/19 17:18 Not Reportable 02/19/19 17:18 Not Reportable 02/19/19 17:18 Not Reportable 02/19/19 17:18 Not Reportable 02/19/19 17:18 Not Reportable 02/19/19 17:18 Not Reportable 02/19/19 17:18 1+ 02/19/19 17:18 Not Reportable 02/19/19 17:18 Not Reportable 02/19/19 17:18 Not Reportable 02/19/19 17:18 Not Reportable 02/19/19 17:18 Not Reportable 02/19/19 17:18 Not Reportable 02/19/19 17:18 Few 02/19/19 17:18 Acanthocytes (Spur) Not Reportable 02/19/19 17:18 Rouleaux Not Reportable 02/19/19 17:18 Not Reportable 02/19/19 17:18 Not Reportable 02/19/19 17:18 Not Reportable 02/19/19 17:18 Not Reportable 02/19/19 17:18 Hem Pathologist Commnt No 02/19/19 17:18 VBG pH 7.325 (7.320-7.420) 02/19/19 19:10 Sodium 147 mmol/L (137-145) H 02/20/19 07:19 Potassium 4.4 mmol/L (3.6-5.0) 02/20/19 07:19 Chloride 110.0 mmol/L (98-107) H 02/20/19 07:19 Carbon Dioxide 29 mmol/L (22-30) 02/20/19 07:19 12 mmol/L 02/20/19 07:19 BUN 13 mg/dL (7-17) 02/20/19 07:19 0.5 mg/dL (0.7-1.2) L 02/20/19 07:19 Estimated GFR > 60 ml/min 02/20/19 07:19 26 % 02/20/19 07:19 Glucose 88 mg/dL (65-100) 02/20/19 07:19 POC Glucose 111 (70-105) H 02/20/19 11:18 Lactic Acid 1.40 mmol/L (0.7-2.0) 02/19/19 18:35 Calcium 8.8 mg/dL (8.4-10.2) 02/20/19 07:19 0.20 mg/dL (0.1-1.2) 02/19/19 17:18 AST 16 units/L (5-40) 02/19/19 17:18 ALT 15 units/L (7-56) 02/19/19 17:18 49 units/L (35-129) 02/19/19 17:18 98 units/L (30-135) 02/19/19 17:18 CK-MB (CK-2) 2.1 ng/mL (0.0-4.0) 02/19/19 17:18 CK-MB (CK-2) Rel Index 2.1 (0-4) 02/19/19 17:18 < 0.010 ng/mL (0.00-0.029) 02/19/19 17:18 7.1 g/dL (6.3-8.2) 02/19/19 17:18 4.0 g/dL (3.9-5) 02/19/19 17:18 1.3 % 02/19/19 17:18 TSH 4.300 mlU/mL (0.270-4.200) H 02/19/19 17:18 Free T4 1.31 ng/dL (0.76-1.46) 02/19/19 17:18 Dark yellow (Yellow) 02/19/19 17:41 Slightly-cloudy (Clear) 02/19/19 17:41 5.0 (5.0-7.0) 02/19/19 17:41 Ur Specific [place] 1.018 (1.003-1.030) 02/19/19 17:41 <15 mg/dl mg/dL (Negative) 02/19/19 17:41 Neg mg/dL (Negative) 02/19/19 17:41 Tr mg/dL (Negative) 02/19/19 17:41 Neg (Negative) 02/19/19 17:41 Neg (Negative) 02/19/19 17:41 Neg (Negative) 02/19/19 17:41 2.0 mg/dL (<2.0) 02/19/19 17:41 Ur Leukocyte Esterase Mod (Negative) 02/19/19 17:41 97.0 /HPF (0.0-6.0) H 02/19/19 17:41 1.0 /HPF (0.0-6.0) 02/19/19 17:41 2+ /HPF 02/19/19 17:41 Valproic Acid 51.6 ug/mL (50-100) 02/19/19 17:18 Active Medications - Current Medications Current Medications: Generic Name Dose Route Start Last Admin Trade Name Suleiman PRN Reason Stop Dose Admin Acetaminophen 650 mg 02/19/19 19:47 02/20/19 10:35 Tylenol PO 650 mg Q4H PRN Administration Pain MILD(1-3)/Fever >100.5/PAN Albuterol 2.5 mg 02/19/19 21:21 Proventil IH Q4HRT PRN Shortness Of Breath Aspirin 325 mg 02/20/19 10:00 02/20/19 10:34 Aspirin PO 325 mg DAILY ANALIA Administration Atorvastatin Calcium 40 mg 02/20/19 10:00 02/20/19 10:34 Lipitor PO 40 mg DAILY ANALIA Administration Clopidogrel Bisulfate 75 mg 02/20/19 10:00 02/20/19 10:34 Plavix PO 75 mg QDAY ANALIA Administration Dextrose 50 ml 02/19/19 21:22 D50w (25gm) Syringe IV PRN PRN Hypoglycemia Divalproex Sodium 125 mg 02/20/19 08:00 02/20/19 08:42 Depakote Sprinkle PO 125 mg TID ANALIA Administration Sodium Chloride 1,000 mls @ 42 mls/hr 02/19/19 20:00 02/19/19 23:09 Nacl 0.9% 1000 Ml IV 42 mls/hr DIRECT ANALIA Administration Ceftriaxone Sodium 1 gm in 50 mls @ 100 mls/hr 02/20/19 10:00 02/20/19 10:39 Rocephin/Ns 1 Gm/50 Ml IV Not Given Q24HR ANALIA Protocol Insulin Human Regular 0 units 02/20/19 00:00 02/20/19 13:28 Humulin R SUB-Q Not Given Q6HR ANALIA Protocol Mirtazapine 15 mg 02/19/19 22:00 02/19/19 23:09 Remeron PO 15 mg QHS ANALIA Administration Olanzapine 15 mg 02/20/19 10:00 02/20/19 10:33 Zyprexa Zydis PO 15 mg DAILY ANALIA Administration Ondansetron HCl 4 mg 02/19/19 19:47 Zofran IV Q8H PRN Nausea And Vomiting Sodium Chloride 10 ml 02/19/19 22:00 02/20/19 10:34 Sodium Chloride Flush Syringe 10 Ml IV Not Given BID ANALIA Sodium Chloride 10 ml 02/19/19 19:47 Sodium Chloride Flush Syringe 10 Ml IV PRN PRN LINE FLUSH
[2019-02-20] MEDS: REMERON PO SCH (21:40)
[2019-02-21] MEDS: HumuLIN R SUB-Q SCH ×4 (00:15→17:34)
[2019-02-21 06:18] LABS: Hematocrit 32.3 % (30.3-42.9); Hemoglobin 10.9 gm/dl (10.1-14.3); Mean Corpuscular HGB Conc 34 % (30-34); Mean Corpuscular Volume 93 fl (79-97); Platelet Count 179 K/mm3 (140-440); Red Cell Distribution Width 15.6 % (13.2-15.2)
[2019-02-21 06:41] LABS: BUN/Creatinine Ratio 25; Blood Urea Nitrogen 10 mg/dL (7-17); Hemolysis Index 5
[2019-02-21] MEDS: ASPIRIN PO SCH (10:58)
[2019-02-21] MEDS: PLAVIX PO SCH (10:58)
[2019-02-21] MEDS: SODIUM CHLORIDE FLUSH SYRINGE 10 ML IV SCH ×2 (10:59→22:18)
[2019-02-21] MEDS: ROCEPHIN/NS 1 GM/50 ML 1 GM/50 ML BAG IV SCH (10:59)
--- NOTE | 2019-02-21 14:31 | Progress Note ---
Assessment and Plan Assessment and plan: Patient is a 63-year-old -[place] woman from [facility] with a history of hypertension, dementia, heart failure, CVA with right sided hemiparesis, schizophrenia, depression, legally blind and epilepsy who presents to [facility] ED complaints of altered mental status and hypo-tension. She was found to be hypo-tensive with initial blood pressure of 82/30 she was given 2 L normal saline fluid bolus and was responsive with improvement in blood pressure of 111/84. CT Head unrevealing for acute intracranial abnormality.Will admit to [facility] unit with remote telemetry monitoring. Severe Sepsis due to UTI, responded to IVF: treat with ivf, awaiting on Urine culture Acute metabolic encephalopathy, poa, slowly improving, treat the infection and hypernatremia Hypernatremia: more free water and monitor bmp closely Hypotension, resolved Dehydration DM 2: ssi, accuchecks History of CVA with right-sided hemiparesis Dementia Chronic heart failure by history History of Schizophrenia History of epilepsy Legally blind History of hypertension History of COPD History of depression DVT PPX on Plavix History Interval history: Patient was seen and examined. Follow-up on current diagnosis of AMS. No overnight events reported to me. Patient is confused. Imaging, nursing note, chart, labs and old chart reviewed. Hospitalist Physical - Physical exam Narrative exam: Gen: WDWN, NAD, Awake, confused, orientated x 0.5, knew her first name HEENT: NCAT, EOMI, PERRL, OP Clear Neck: supple, no adenopathy, no thyromegaly, no JVD CVS/Heart: RRR, normal S1S2, pulses present bilaterally Chest/Lungs: CTA B, Symmetrical chest expansion, good air entry bilaterally GI/Abdomen: soft, NTND, good bowel sounds, no guarding or rebound /Bladder:+ suprapubic tenderness, no CVA or paraspinal tenderness Extermity/Skin: no c/c/e, no obvious rash MSK: FROM x 4 Neuro: CN 2-12 grossly intact, no new focal deficits Psych: confused, yells out nonsensical things on occasion - Constitutional Vitals: Temp Pulse Resp BP Pulse Ox 98.4 F 82 20 146/106 99 02/21/19 11:34 02/21/19 11:34 02/21/19 11:34 02/21/19 11:34 02/21/19 11:34 Results - Labs CBC & Chem 7: 02/21/19 05:11 02/21/19 05:11 Labs: Laboratory Last Values WBC 4.7 K/mm3 (4.5-11.0) 02/21/19 05:11 RBC 3.50 M/mm3 (3.65-5.03) L 02/21/19 05:11 Hgb 10.9 gm/dl (10.1-14.3) 02/21/19 05:11 Hct 32.3 % (30.3-42.9) 02/21/19 05:11 MCV 93 fl (79-97) 02/21/19 05:11 MCH 31 pg (28-32) 02/21/19 05:11 MCHC 34 % (30-34) 02/21/19 05:11 RDW 15.6 % (13.2-15.2) H 02/21/19 05:11 Plt Count 179 K/mm3 (140-440) 02/21/19 05:11 Lymph % (Auto) 42.6 % (13.4-35.0) H 02/20/19 07:19 [place] % (Auto) 9.1 % (0.0-7.3) H 02/20/19 07:19 Eos % (Auto) 1.2 % (0.0-4.3) 02/20/19 07:19 Baso % (Auto) 0.4 % (0.0-1.8) 02/20/19 07:19 Lymph # 2.9 K/mm3 (1.2-5.4) 02/20/19 07:19 [place] # 0.6 K/mm3 (0.0-0.8) 02/20/19 07:19 Eos # 0.1 K/mm3 (0.0-0.4) 02/20/19 07:19 Baso # 0.0 K/mm3 (0.0-0.1) 02/20/19 07:19 Add Manual Diff Complete 02/19/19 17:18 Total Counted 100 02/19/19 17:18 Seg Neutrophils % 46.7 % (40.0-70.0) 02/20/19 07:19 Seg Neuts % (Manual) 64.0 % (40.0-70.0) 02/19/19 17:18 0 % 02/19/19 17:18 27.0 % (13.4-35.0) 02/19/19 17:18 Reactive Lymphs % (Man) 0 % 02/19/19 17:18 7.0 % (0.0-7.3) 02/19/19 17:18 2.0 % (0.0-4.3) 02/19/19 17:18 0 % (0.0-1.8) 02/19/19 17:18 0 % 02/19/19 17:18 0 % 02/19/19 17:18 0 % 02/19/19 17:18 0 % 02/19/19 17:18 Nucleated RBC % Not Reportable 02/19/19 17:18 Seg Neutrophils # 3.2 K/mm3 (1.8-7.7) 02/20/19 07:19 Seg Neutrophils # Man 4.1 K/mm3 (1.8-7.7) 02/19/19 17:18 Band Neutrophils # 0.0 K/mm3 02/19/19 17:18 1.7 K/mm3 (1.2-5.4) 02/19/19 17:18 Abs React Lymphs (Man) 0.0 K/mm3 02/19/19 17:18 0.4 K/mm3 (0.0-0.8) 02/19/19 17:18 0.1 K/mm3 (0.0-0.4) 02/19/19 17:18 0.0 K/mm3 (0.0-0.1) 02/19/19 17:18 0.0 K/mm3 02/19/19 17:18 0.0 K/mm3 02/19/19 17:18 0.0 K/mm3 02/19/19 17:18 Blast Cells # 0.0 K/mm3 02/19/19 17:18 WBC Morphology Not Reportable 02/19/19 17:18 Hypersegmented Neuts Not Reportable 02/19/19 17:18 Hyposegmented Neuts Not Reportable 02/19/19 17:18 Hypogranular Neuts Not Reportable 02/19/19 17:18 Not Reportable 02/19/19 17:18 Not Reportable 02/19/19 17:18 Not Reportable 02/19/19 17:18 Not Reportable 02/19/19 17:18 Not Reportable 02/19/19 17:18 Not Reportable 02/19/19 17:18 Consistent w auto 02/19/19 17:18 Not Reportable 02/19/19 17:18 Plt Clumps, EDTA Not Reportable 02/19/19 17:18 1+ 02/19/19 17:18 Not Reportable 02/19/19 17:18 Not Reportable 02/19/19 17:18 Plt Morphology Comment Not Reportable 02/19/19 17:18 RBC Morphology Not Reportable 02/19/19 17:18 Dimorphic RBCs Not Reportable 02/19/19 17:18 Not Reportable 02/19/19 17:18 Not Reportable 02/19/19 17:18 Not Reportable 02/19/19 17:18 1+ 02/19/19 17:18 Not Reportable 02/19/19 17:18 Not Reportable 02/19/19 17:18 Not Reportable 02/19/19 17:18 Not Reportable 02/19/19 17:18 Not Reportable 02/19/19 17:18 Not Reportable 02/19/19 17:18 Not Reportable 02/19/19 17:18 1+ 02/19/19 17:18 Not Reportable 02/19/19 17:18 Not Reportable 02/19/19 17:18 Not Reportable 02/19/19 17:18 Not Reportable 02/19/19 17:18 Not Reportable 02/19/19 17:18 Not Reportable 02/19/19 17:18 Few 02/19/19 17:18 Acanthocytes (Spur) Not Reportable 02/19/19 17:18 Rouleaux Not Reportable 02/19/19 17:18 Not Reportable 02/19/19 17:18 Not Reportable 02/19/19 17:18 Not Reportable 02/19/19 17:18 Not Reportable 02/19/19 17:18 Hem Pathologist Commnt No 02/19/19 17:18 VBG pH 7.325 (7.320-7.420) 02/19/19 19:10 Sodium 147 mmol/L (137-145) H 02/21/19 05:11 Potassium 3.7 mmol/L (3.6-5.0) 02/21/19 05:11 Chloride 107.4 mmol/L (98-107) H 02/21/19 05:11 Carbon Dioxide 27 mmol/L (22-30) 02/21/19 05:11 16 mmol/L 02/21/19 05:11 BUN 10 mg/dL (7-17) 02/21/19 05:11 0.4 mg/dL (0.7-1.2) L 02/21/19 05:11 Estimated GFR > 60 ml/min 02/21/19 05:11 25 % 02/21/19 05:11 Glucose 91 mg/dL (65-100) 02/21/19 05:11 POC Glucose 104 (70-105) 02/21/19 11:44 Lactic Acid 1.40 mmol/L (0.7-2.0) 02/19/19 18:35 Calcium 9.0 mg/dL (8.4-10.2) 02/21/19 05:11 0.20 mg/dL (0.1-1.2) 02/19/19 17:18 AST 16 units/L (5-40) 02/19/19 17:18 ALT 15 units/L (7-56) 02/19/19 17:18 49 units/L (35-129) 02/19/19 17:18 98 units/L (30-135) 02/19/19 17:18 CK-MB (CK-2) 2.1 ng/mL (0.0-4.0) 02/19/19 17:18 CK-MB (CK-2) Rel Index 2.1 (0-4) 02/19/19 17:18 < 0.010 ng/mL (0.00-0.029) 02/19/19 17:18 7.1 g/dL (6.3-8.2) 02/19/19 17:18 4.0 g/dL (3.9-5) 02/19/19 17:18 1.3 % 02/19/19 17:18 TSH 4.300 mlU/mL (0.270-4.200) H 02/19/19 17:18 Free T4 1.31 ng/dL (0.76-1.46) 02/19/19 17:18 Dark yellow (Yellow) 02/19/19 17:41 Slightly-cloudy (Clear) 02/19/19 17:41 5.0 (5.0-7.0) 02/19/19 17:41 Ur Specific [place] 1.018 (1.003-1.030) 02/19/19 17:41 <15 mg/dl mg/dL (Negative) 02/19/19 17:41 Neg mg/dL (Negative) 02/19/19 17:41 Tr mg/dL (Negative) 02/19/19 17:41 Neg (Negative) 02/19/19 17:41 Neg (Negative) 02/19/19 17:41 Neg (Negative) 02/19/19 17:41 2.0 mg/dL (<2.0) 02/19/19 17:41 Ur Leukocyte Esterase Mod (Negative) 02/19/19 17:41 97.0 /HPF (0.0-6.0) H 02/19/19 17:41 1.0 /HPF (0.0-6.0) 02/19/19 17:41 2+ /HPF 02/19/19 17:41 Valproic Acid 51.6 ug/mL (50-100) 02/19/19 17:18 Active Medications - Current Medications Current Medications: Generic Name Dose Route Start Last Admin Trade Name Freq PRN Reason Stop Dose Admin Acetaminophen 650 mg 02/19/19 19:47 02/20/19 10:35 Tylenol PO 650 mg Q4H PRN Administration Pain MILD(1-3)/Fever >100.5/PAN Albuterol 2.5 mg 02/19/19 21:21 Proventil IH Q4HRT PRN Shortness Of Breath Aspirin 325 mg 02/20/19 10:00 02/21/19 10:58 Aspirin PO 325 mg DAILY ANALIA Administration Atorvastatin Calcium 40 mg 02/20/19 10:00 02/21/19 10:58 Lipitor PO 40 mg DAILY ANALIA Administration Clopidogrel Bisulfate 75 mg 02/20/19 10:00 02/21/19 10:58 Plavix PO 75 mg QDAY ANALIA Administration Dextrose 50 ml 02/19/19 21:22 D50w (25gm) Syringe IV PRN PRN Hypoglycemia Divalproex Sodium 125 mg 02/20/19 08:00 02/21/19 10:59 Depakote Sprinkle PO 125 mg TID ANALIA Administration Sodium Chloride 1,000 mls @ 42 mls/hr 02/19/19 20:00 02/19/19 23:09 Nacl 0.9% 1000 Ml IV 42 mls/hr DIRECT ANALIA Administration Ceftriaxone Sodium 1 gm in 50 mls @ 100 mls/hr 02/20/19 10:00 02/21/19 10:59 Rocephin/Ns 1 Gm/50 Ml IV 100 mls/hr Q24HR ANALIA Administration Protocol Insulin Human Regular 0 units 02/20/19 00:00 02/21/19 13:15 Humulin R SUB-Q Not Given Q6HR ANALIA Protocol Mirtazapine 15 mg 02/19/19 22:00 02/20/19 21:40 Remeron PO 15 mg QHS ANALIA Administration Olanzapine 15 mg 02/20/19 10:00 02/21/19 11:02 Zyprexa Zydis PO 15 mg DAILY ANALIA Administration Ondansetron HCl 4 mg 02/19/19 19:47 Zofran IV Q8H PRN Nausea And Vomiting Sodium Chloride 10 ml 02/19/19 22:00 02/21/19 10:59 Sodium Chloride Flush Syringe 10 Ml IV 10 ml BID ANALIA Administration Sodium Chloride 10 ml 02/19/19 19:47 Sodium Chloride Flush Syringe 10 Ml IV PRN PRN LINE FLUSH
[2019-02-21] MEDS: D5W 1,000 ML IV SCH (15:59)
[2019-02-21] MEDS: REMERON PO SCH (22:18)
[2019-02-22] MEDS: HumuLIN R SUB-Q SCH ×4 (00:34→19:36)
[2019-02-22] MEDS: D5W 1,000 ML IV SCH (07:55)
[2019-02-22 08:10] LABS: Hematocrit 34.9 % (30.3-42.9); Hemoglobin 11.8 gm/dl (10.1-14.3); Mean Corpuscular HGB Conc 34 % (30-34); Mean Corpuscular Volume 94 fl (79-97); Platelet Count 173 K/mm3 (140-440); Red Blood Count 3.74 M/mm3 (3.65-5.03); Red Cell Distribution Width 15.8 % (13.2-15.2)
[2019-02-22 08:28] LABS: BUN/Creatinine Ratio 20; Blood Urea Nitrogen 6 mg/dL (7-17); Calcium 9.2 mg/dL (8.4-10.2); Hemolysis Index 94
[2019-02-22] MEDS: ROCEPHIN/NS 1 GM/50 ML 1 GM/50 ML BAG IV SCH (10:03)
[2019-02-22] MEDS: PLAVIX PO SCH (10:04)
[2019-02-22] MEDS: ASPIRIN PO SCH (10:06)
[2019-02-22] MEDS: SODIUM CHLORIDE FLUSH SYRINGE 10 ML IV SCH (10:07)
--- NOTE | 2019-02-22 15:27 | Discharge Summary ---
Providers - Providers Date of Admission: 02/19/19 19:47 Date of discharge: 02/22/19 Attending physician: DEYSI MUNGUIA 02/19/19 17:42 Speech Therapy Evaluation and Treat [CONS] Routine Reason For Exam: failed bedside swallow eval Primary care physician: [employer] OPERATOR Hospitalization Condition: Stable Hospital course: Patient is a 63-year-old -[place] woman from [facility] with a history of hypertension, dementia, heart failure, CVA with right sided hemiparesis, schizophrenia, depression, legally blind and epilepsy who presents to [facility] ED complaints of altered mental status and hypo-tension. She was found to be hypo-tensive with initial blood pressure of 82/30 she was given 2 L normal saline fluid bolus and was responsive with improvement in blood pressure of 111/84. CT Head unrevealing for acute intracranial abnormality.Will admit to [facility] unit with remote telemetry monitoring. Discharge Diagnoses: Severe Sepsis due to UTI, responded to IVF: treated with ivf/abx, Urine culture reviewed Acute metabolic encephalopathy, poa, slowly improving, treat the infection and hypernatremia Hypernatremia: treated with free water and monitor bmp closely Hypotension, resolved Dehydration DM 2: ssi, accuchecks History of CVA with right-sided hemiparesis History of Dementia History of Chronic heart failure stable History of Schizophrenia History of epilepsy History of being Legally blind History of hypertension History of COPD History of depression DVT PPX on Plavix Disposition: DC/TX-03 SNF [facility] Time spent for discharge: 31 minutes Core Measure Documentation - Palliative Care Palliative Care/ Comfort Measures: Not Applicable - Core Measures Any of the following diagnoses?: none - VTE Discharge Requirements Deep Vein Thrombosis/Pulmonary Embolism Present on Admission: No Has pt received <5 days of overlap therapy or INR<2.0: No Anticoagulant overlap therapy prescribed at discharge: No Contraindication No Overlap Therapy order at DC: Not Indicated Exam - Physical Exam Narrative exam: Gen: WDWN, NAD, Awake, confused, orientated x 0.5, knew her first name HEENT: NCAT, EOMI, PERRL, OP Clear Neck: supple, no adenopathy, no thyromegaly, no JVD CVS/Heart: RRR, normal S1S2, pulses present bilaterally Chest/Lungs: CTA B, Symmetrical chest expansion, good air entry bilaterally GI/Abdomen: soft, NTND, good bowel sounds, no guarding or rebound /Bladder:+ suprapubic tenderness, no CVA or paraspinal tenderness Extermity/Skin: no c/c/e, no obvious rash MSK: FROM x 4 Neuro: CN 2-12 grossly intact, no new focal deficits Psych: confused, yells out nonsensical things on occasion - Constitutional Vitals: Temp Pulse Resp BP Pulse Ox 97.7 F 90 18 138/99 100 02/22/19 11:27 02/22/19 11:27 02/22/19 11:27 02/22/19 11:27 02/22/19 11:27 Plan Activity: up only with assistance, other (no strenous activity) Diet: low salt Follow up with: PRIMARY CARE, [Primary Care Provider] - 7 Days Prescriptions: cefUROXime [Ceftin] 2 tab PO Q12H #8 tablet
[2019-02-22 18:36] VITALS: BP 134/94
== END 2019-02-22 19:41 | DRG 871 ==
LOC: ED 16:54 → 3A 19:47
PROVIDERS: ADMIT Internal Medicine; ATTEND Internal Medicine
DX: A41.9 Sepsis, unspecified organism (principal); G93.41 Metabolic encephalopathy; N39.0 Urinary tract infection, site not specified; I69.351 Hemiplegia and hemiparesis following cerebral infarction affecting right dominant side; E87.0 Hyperosmolality and hypernatremia; F03.90 Unspecified dementia, unspecified severity, without behavioral disturbance, psychotic disturbance, mood disturbance, and anxiety; I50.9 Heart failure, unspecified; F20.9 Schizophrenia, unspecified; E86.0 Dehydration; H54.8 Legal blindness, as defined in USA; F41.9 Anxiety disorder, unspecified; E11.9 Type 2 diabetes mellitus without complications; G40.909 Epilepsy, unspecified, not intractable, without status epilepticus; F32.9 Major depressive disorder, single episode, unspecified; Z79.82 Long term (current) use of aspirin; Z79.899 Other long term (current) drug therapy; Z79.84 Long term (current) use of oral hypoglycemic drugs
CPT/HCPCS: 36415; 70450; 71045; 80048; 80053; 80164; 81001; 82140; 82550; 82553; 82805; 82962; 84439; 84443; 84484; 85007; 85025; 85027; 87040; 87086; 93005; 93010; 96361; 96365; G0378; A9270-GY; J0696; J7030; J7070

== ENCOUNTER 2019-12-07 21:29 | Emergency (ER) | payer MEDICARE ==
--- NOTE | 2019-12-07 21:42 | Emergency Department Report ---
ED Fall HPI - General Chief Complaint: Fall Stated Complaint: FALL Time Seen by Provider: 12/07/19 21:39 Source: patient, EMS, RN notes reviewed, old records reviewed Mode of arrival: Stretcher - History of Present Illness Initial Comments: This is a 64-year-old female with history of CVA, schizophrenia history of hemiparesis, blindness who presents with fall out of bed approximately 5 hours prior to arrival. She had initially left jaw pain. Now she denies any pain at this time. Fall out of bed was approximately 1 to 2 feet [address] ground. No other notable injuries. Patient currently resides at long term facility [facility]. [place] Complaint: fall -: This afternoon Fall From: out of bed When Fall Occurred: 4-[address] Fall Occurred: long term/SNF Loss of Consciousness: unsure Prolonged Down Time?: no Symptoms Prior to Fall: none Associated Symptoms: other (Left jaw pain) - Related Data Home Medications Medication Instructions Recorded Confirmed Last Taken Aspirin 325 mg PO DAILY 04/04/18 02/19/19 Unknown Atorvastatin Calcium 40 mg PO DAILY 04/04/18 02/19/19 Unknown Clopidogrel [Plavix] 75 mg PO QDAY 04/04/18 02/19/19 Unknown OLANZapine [Zyprexa Zydis] 15 mg PO DAILY 04/04/18 02/19/19 Unknown carvediloL [Coreg] 12.5 mg PO BID 04/04/18 02/19/19 Unknown lisinopriL [Zestril TAB] 20 mg PO QDAY 04/04/18 02/19/19 Unknown polyethylene glycoL 3350 [Miralax 17 gm PO QDAY 04/04/18 02/19/19 Unknown 3350] Acetaminophen 325 mg PO Q4H PRN 02/19/19 02/19/19 Unknown Depakote Sprinkle 125 mg PO TID 02/19/19 02/19/19 Unknown Eugenol 1 applicator PO Q6H 02/19/19 02/19/19 Unknown Percocet 5/325 mg 5 - 325 mg PO Q6H PRN 02/19/19 02/19/19 Unknown Remeron 15mg TAB 15 mg PO QHS 02/19/19 02/19/19 Unknown Robitussin 10 ml PO Q4H PRN 02/19/19 02/19/19 Unknown traMADol 50 mg PO Q8H 02/19/19 02/19/19 Unknown Previous Rx's Medication Instructions Recorded Last Taken Type cefUROXime [Ceftin] 2 tab PO Q12H #8 tablet 02/22/19 Unknown Rx Allergies Allergy/AdvReac Type Severity Reaction Status Date / Time No Known Allergies Allergy Unverified 07/03/16 16:32 ED Review of Systems ROS: Stated complaint: FALL Other details as noted in HPI Cardiovascular: denies: chest pain Gastrointestinal: denies: abdominal pain ED Past Medical Hx - Past Medical History Previous Medical History?: Yes Hx Hypertension: Yes Hx CVA: Yes Hx Congestive Heart Failure: Yes Hx Diabetes: Yes Hx Seizures: Yes Hx COPD: Yes Hx Dementia: Yes Additional medical history: Generalized ms weakness. anxiety disorder. Legal blindness. Schizophrenia. Epilepsy - Social History Smoking Status: Unknown if ever smoked Substance Use Type: None - Medications Home Medications: Home Medications Medication Instructions Recorded Confirmed Last Taken Type Aspirin 325 mg PO DAILY 04/04/18 02/19/19 Unknown History Atorvastatin Calcium 40 mg PO DAILY 04/04/18 02/19/19 Unknown History Clopidogrel [Plavix] 75 mg PO QDAY 04/04/18 02/19/19 Unknown History OLANZapine [Zyprexa Zydis] 15 mg PO DAILY 04/04/18 02/19/19 Unknown History carvediloL [Coreg] 12.5 mg PO BID 04/04/18 02/19/19 Unknown History lisinopriL [Zestril TAB] 20 mg PO QDAY 04/04/18 02/19/19 Unknown History polyethylene glycoL 3350 [Miralax 17 gm PO QDAY 04/04/18 02/19/19 Unknown History 3350] Acetaminophen 325 mg PO Q4H PRN 02/19/19 02/19/19 Unknown History Depakote Sprinkle 125 mg PO TID 02/19/19 02/19/19 Unknown History Eugenol 1 applicator PO Q6H 02/19/19 02/19/19 Unknown History Percocet 5/325 mg 5 - 325 mg PO Q6H PRN 02/19/19 02/19/19 Unknown History Remeron 15mg TAB 15 mg PO QHS 02/19/19 02/19/19 Unknown History Robitussin 10 ml PO Q4H PRN 02/19/19 02/19/19 Unknown History traMADol 50 mg PO Q8H 02/19/19 02/19/19 Unknown History cefUROXime [Ceftin] 2 tab PO Q12H #8 tablet 02/22/19 Unknown Rx ED Physical Exam - General Limitations: Altered Mental Status, Physical Limitation General appearance: alert, in no apparent distress - Head Head exam: Present: atraumatic, normocephalic - Eye Eye exam: Present: normal appearance - ENT ENT exam: Present: mucous membranes moist - Neck Neck exam: Present: normal inspection - Respiratory Respiratory exam: Present: normal lung sounds bilaterally. Absent: respiratory distress, wheezes, rales, rhonchi - Cardiovascular Cardiovascular Exam: Present: regular rate, normal rhythm. Absent: systolic murmur, diastolic murmur, rubs, gallop - GI/Abdominal GI/Abdominal exam: Present: soft. Absent: distended, tenderness, guarding, rebound - Extremities Exam Extremities exam: Present: other (Contracted extremities) - Neurological Exam Neurological exam: Present: alert - Psychiatric Psychiatric exam: Present: normal affect, normal mood, flat affect - Skin Skin exam: Present: warm, dry, intact, normal color. Absent: rash ED Course Vital Signs 12/07/19 12/07/19 21:40 21:49 Temperature 99.0 F Pulse Rate 72 67 Respiratory 13 12 Rate Blood Pressure 117/72 [Left] O2 Sat by Pulse 98 Oximetry ED Medical Decision Making - Radiology Data Radiology results: report reviewed CT head without contrast revealed multiple old infarcts without evidence of acute intracranial hemorrhage CT of the face no acute fracture or other acute abnormality CT cervical spine: Mild diffuse degenerative change - Medical Decision Making Mrs. Mcgee currently resides at long term facility. She fell from a height of 1 to 2 feet out of bed. According to medical records from the skilled facility, she is on anticoagulation. CT head, CT face, CT cervical spine without traumatic injury. No evidence of blunt trauma of the torso or extremities. She is discharged back to long term facility. Critical care attestation.: If time is entered above; I have spent that time in minutes in the direct care of this critically ill patient, excluding procedure time. ED Disposition Clinical Impression: Fall from bed, Closed head injury, Jaw pain Disposition: DC/TX-70 ANOTHER TYPE [facility]THCARE Is pt being admited?: No Does the pt Need Aspirin: No Condition: Stable
[2019-12-07 22:02] VITALS: BP 117/72
--- NOTE | 2019-12-07 22:59 | Cat Scan Report ---
CT facial bones wo con INDICATION: facial pain fall out of bed hx of CVA. TECHNIQUE: All CT scans at this location are performed using CT dose reduction for ALARA by means of automated e xposure control. COMPARISON: None available. FINDINGS: Very slight mucosal thickening in the sphenoid and ethmoid sinuses. Maxillary and frontal sinuses are clear. Orbits are intact. No intraocular abnormalities. Multiple dental abnormalities, with numerous missing teeth. No fracture or other acute abnormality. IMPRESSION: 1. No acute fracture or other acute abnormality. Signer Name: Rom Yen MD Signed: 12/07/2019 10:54 PM Workstation Name: [id number]
--- NOTE | 2019-12-07 22:59 | Cat Scan Report ---
CT head/brain wo con INDICATION / CLINICAL INFORMATION: 64 years Female; fall out of bed hx of CVA on anticoagulation. TECHNIQUE: Routine CT head without contrast. All CT scans at this location are performed using CT dos e reduction for ALARA by means of automated exposure control. COMPARISON: The study is compared to the previous CT of 02/19/2019. FINDINGS: There is notable encephalomalacia involving the occipital lobes bilaterally compatible with old infarcts. There are also chronic infarcts within the cerebellar hemispheres, larger on the right . Similar findings were seen on the previous CT at. Old lacunar infarct is also noted within the righ t thalamus. There is otherwise moderate cerebral white matter disease most consistent with microvascular angiopat hy. There is mild cerebral atrophy with associated mild prominence of the ventricular system. There i s a persistent focus of calcification within the old left occipital lobe infarct. There is no clear C T evidence of acute intracranial hemorrhage or significant mass effect. ORBITS: No significant abnormality of visualized orbits. SINUSES / MASTOIDS: There is mild mucosal thickening within the ethmoid and sphenoid sinuses. CRANIOCERVICAL JUNCTION: No significant abnormality. ADDITIONAL FINDINGS: None. IMPRESSION: 1. There are multiple old infarcts and microvascular angiopathy as detailed above. 2. There is no CT evidence of acute intracranial hemorrhage. Signer Name: Gio Orta MD Signed: 12/07/2019 10:54 PM Workstation Name: [id number]
--- NOTE | 2019-12-07 23:16 | Cat Scan Report ---
CT cervical spine wo con INDICATION: fall out of bed hx of CVA. TECHNIQUE: All CT scans at this location are performed using the following dose modulation technique: Automated exposure control. CONTRAST: None. COMPARISON: None available. FINDINGS: Satisfactory alignment without vertebral compression. Mild degenerative disc disease is sca ttered diffusely. There are more prominent anterior osteophytes. Negative for significant soft tissue injury. IMPRESSION: Mild diffuse degenerative change. Signer Name: Juan Palumbo MD Signed: 12/07/2019 11:12 PM Workstation Name: [id number]
== END 2019-12-08 03:40 | disposition other institution (70) ==
LOC: ED 21:29
DX: S09.90XA Unspecified injury of head, initial encounter (principal); R68.84 Jaw pain; F20.89 Other schizophrenia; I11.0 Hypertensive heart disease with heart failure; I50.9 Heart failure, unspecified; E11.9 Type 2 diabetes mellitus without complications; J44.9 Chronic obstructive pulmonary disease, unspecified; F03.90 Unspecified dementia, unspecified severity, without behavioral disturbance, psychotic disturbance, mood disturbance, and anxiety; Z79.899 Other long term (current) drug therapy; X58.XXXA Exposure to other specified factors, initial encounter; Y93.89 Activity, other specified; Y92.89 Other specified places as the place of occurrence of the external cause; Y99.8 Other external cause status
CPT/HCPCS: 70450; 70486; 72125